=== PATIENT | female | born 1995 | race Asian ===

== ENCOUNTER 2018-01-08 16:09 | Emergency (ER) | payer MEDICAID, OTHER ==
[~2018-01-08] VITALS: Ht 167.6 cm; Wt 121.4 kg
[~2018-01-08 16:09] MED LIST: LITH300C3 PO
[2018-01-08] MEDS ORDERED: LAMO25 PO (16:17)
[2018-01-08] MEDS ORDERED: HydrOXYzine PAMOATE 25 MG CAPSULE PO ONE (19:00)
[2018-01-08 19:41] VITALS: BP 123/75
== END 2018-01-08 19:42 | disposition home or self-care (01) ==
LOC: EMS 16:09
DX: F41.9 Anxiety disorder, unspecified (principal); F31.9 Bipolar disorder, unspecified; F17.210 Nicotine dependence, cigarettes, uncomplicated; F12.90 Cannabis use, unspecified, uncomplicated
CPT/HCPCS: 99284

== ENCOUNTER 2018-05-02 16:07 | Inpatient (IN) | payer MEDICAID ==
[~2018-05-02] VITALS: Ht 167.6 cm; Wt 121.2 kg
[~2018-05-02 16:07] MED LIST changes: +ARIP15TA2 PO; +CITA10TA68 PO; +FOLI1 PO; -LITH300C3 PO
[2018-05-02 16:44] LABS: BASOPHILS % (AUTO) 0.6 % (0.0-2.0); EOSINOPHILS % (AUTO) 1.1 % (1.0-6.0); HEMATOCRIT 40.8 % (36-46); HEMOGLOBIN 13.2 g/dL (12.0-16.0); LYMPHOCYTES # (AUTO) 2.6 K/uL (1.0-4.8); MEAN CORPUSCULAR HEMOGLOBIN 27.2 pg (26.0-34.0); MEAN CORPUSCULAR HGB CONC 32.4 G/dL (31.0-37.0); MEAN CORPUSCULAR VOLUME 84 fL (80-100); MONOCYTES # (AUTO) 0.7 K/uL (0.1-1.0); NEUTROPHILS % (AUTO) 79.3 % (40.0-70.0); PLATELET COUNT (AUTO) 529 K/uL (150-450); RED BLOOD CELL COUNT(AUTO) 4.86 MIL/uL (4.00-5.20); RED CELL DISTRIBUTION WIDTH 13.9 % (11.5-14.5)
[2018-05-02 16:50] LABS: ANION GAP 10 mmol/L (8-16); CALCIUM, TOTAL 9.1 mg/dL (8.8-10.5); CARBON DIOXIDE 27 mmol/L (22-29); CHLORIDE 103 mmol/L (98-107); CREATININE 0.94 mg/dL (0.60-1.30); GLOMERULAR FILTR. RATE CALC > 60 mL/min (>60); GLUCOSE,RANDOM 83 mg/dL (70-110); POTASSIUM 3.7 mmol/L (3.5-5.1); SODIUM SERUM 140 mmol/L (136-145); UREA NITROGEN, BLOOD 11 mg/dL (7-18)
[2018-05-02 16:55] LABS: ALANINE AMINOTRANSFERASE 35 U/L (12-78); ALBUMIN 3.6 g/dL (3.4-5.0); ALKALINE PHOSPHATASE 125 U/L (46-116); ASPARTATE AMINOTRANSFERASE 17 U/L (15-37); BILIRUBIN,TOTAL 0.4 mg/dL (0.1-1.0); TOTAL PROTEIN, SERUM 8.4 g/dL (6.4-8.2)
[2018-05-02 18:20] LABS: AMPHET/METH SCREEN,URINE NEGATIVE (NEGATIVE); BARBITURATE SCREEN, URINE NEGATIVE (NEGATIVE); BENZODIAZEPINES SCREEN,URINE NEGATIVE (NEGATIVE); CANNABINOID SCREEN,URINE NEGATIVE (NEGATIVE); COCAINE SCREEN,URINE NEGATIVE (NEGATIVE); METHADONE SCREEN, URINE NEGATIVE (NEGATIVE); OPIATE SCREEN,URINE NEGATIVE (NEGATIVE); PHENCYCLIDINE SCREEN,URINE NEGATIVE (NEGATIVE)
[2018-05-02] MEDS: LORazepam 2 MG/ML VIAL IM ONE ×3 (19:17→19:52)
[2018-05-02] MEDS ORDERED: HALOPERIDOL 5 MG TABLET PO PRN (19:45)
[2018-05-02] MEDS ORDERED: LORazepam 2 MG TABLET PO PRN (19:45)
[2018-05-02] MEDS ORDERED: ACETAMINOPHEN 500 MG TABLET PO ONE (20:00)
[2018-05-02 22:03] VITALS: BP 119/84
[2018-05-02 22:03] LABS: APPEARANCE,URINE CLOUDY (CLEAR); BILIRUBIN,URINE NEGATIVE (NEGATIVE); GLUCOSE, URINE (UA) NEGATIVE (NEGATIVE); KETONES,URINE NEGATIVE (NEGATIVE); LEUKOCYTE ESTERASE ,URINE NEGATIVE (NEGATIVE); NITRATE,URINE NEGATIVE (NEGATIVE); OCCULT BLOOD,URINE NEGATIVE (NEGATIVE); PH,URINE 5.5 (5.0-8.0); PROTEIN,URINE NEGATIVE (NEGATIVE); UROBILINOGEN,URINE 0.2 mg/dL (<=1.0)
[2018-05-02] MEDS ORDERED: MAG HYDROX/AL HYDROX/SIMETH ES 30 ML SUSPENSION UDCUP PO PRN (22:15)
[2018-05-02] MEDS ORDERED: DOCUSATE SODIUM 100 MG CAPSULE PO PRN (22:15)
[2018-05-02] MEDS ORDERED: LOPERAMIDE HCL 2 MG CAPSULE PO PRN (22:15)
[2018-05-02] MEDS ORDERED: IBUPROFEN 400 MG TABLET PO PRN (22:15)
[2018-05-02] MEDS ORDERED: GuaiFENesin/D-METHORPHAN [SUGAR-FREE] 200-20MG/10 ML SYRUP UDCUP PO PRN (22:15)
[2018-05-02] MEDS ORDERED: CloNIDine HCL 0.1 MG TABLET PO PRN (22:15)
[2018-05-02] MEDS ORDERED: NICOTINE 14 MG/24 HOUR PATCH TD PRN (22:15)
[2018-05-02] MEDS ORDERED: ALBUTEROL SULFATE HFA 90 MCG/PUFF 8 GM INHALER IH PRN (22:15)
[2018-05-02] MEDS ORDERED: PNEUMOCOCCAL VACCINE POLYVALENT 0.5 ML VIAL [PPSV23] IM ONE (22:15)
[2018-05-02] MEDS ORDERED: ACETAMINOPHEN 325 MG TABLET PO PRN (22:15)
[2018-05-02] MEDS ORDERED: PETROLATUM,WHITE 71 GM JELLY TP PRN (22:15)
[2018-05-02] MEDS ORDERED: ONDANSETRON HCL 4 MG TABLET PO PRN (22:15)
[2018-05-02] MEDS ORDERED: MAGNESIUM HYDROXIDE SUSPENSION 30 ML UDCUP PO PRN (22:15)
[2018-05-03 06:54] LABS: BASOPHILS % (AUTO) 0.8 % (0.0-2.0); EOSINOPHILS % (AUTO) 3.6 % (1.0-6.0); HEMATOCRIT 39.9 % (36-46); HEMOGLOBIN 13.2 g/dL (12.0-16.0); LYMPHOCYTES # (AUTO) 2.1 K/uL (1.0-4.8); LYMPHOCYTES % (AUTO) 20.8 % (22.0-44.0); MEAN CORPUSCULAR HGB CONC 33.2 G/dL (31.0-37.0); MEAN CORPUSCULAR VOLUME 84 fL (80-100); MONOCYTES # (AUTO) 0.6 K/uL (0.1-1.0); MONOCYTES % (AUTO) 5.6 % (2.0-9.0); NEUTROPHILS # (AUTO) 7.1 K/uL (1.8-7.7); NEUTROPHILS % (AUTO) 69.2 % (40.0-70.0); PLATELET COUNT (AUTO) 493 K/uL (150-450); RED BLOOD CELL COUNT(AUTO) 4.73 MIL/uL (4.00-5.20); RED CELL DISTRIBUTION WIDTH 14.1 % (11.5-14.5)
[2018-05-03 07:01] LABS: HEMOGLOBIN A1C 5.5 % (4.5-6.2)
[2018-05-03 07:12] LABS: ALANINE AMINOTRANSFERASE 35 U/L (12-78); ALBUMIN 3.3 g/dL (3.4-5.0); ALKALINE PHOSPHATASE 111 U/L (46-116); ANION GAP 6 mmol/L (8-16); ASPARTATE AMINOTRANSFERASE 25 U/L (15-37); BILIRUBIN,TOTAL 0.4 mg/dL (0.1-1.0); CALCIUM, TOTAL 8.4 mg/dL (8.8-10.5); CARBON DIOXIDE 29 mmol/L (22-29); CHLORIDE 104 mmol/L (98-107); CHOL/HDL RATIO 3.9 (3.9-5.7); CHOLESTEROL 181 mg/dL (131-200); GLOMERULAR FILTR. RATE CALC > 60 mL/min (>60); GLUCOSE,RANDOM 96 mg/dL (70-110); HDL CHOLESTEROL 46 mg/dL (40-60); LDL CHOL (CALC.) 110 mg/dL (0-130); POTASSIUM 3.9 mmol/L (3.5-5.1); SODIUM SERUM 139 mmol/L (136-145); THYROID STIMULATING HORMONE 1.82 uIU/mL (0.36-3.74); TOTAL PROTEIN, SERUM 7.7 g/dL (6.4-8.2); TRIGLYCERIDES 123 mg/dL (15-150); UREA NITROGEN, BLOOD 11 mg/dL (7-18)
[2018-05-03] MEDS: ARIPiprazole 15 MG TABLET PO SCH (07:48)
[2018-05-03] MEDS ORDERED: CITALOPRAM HYDROBROMIDE 20 MG TABLET PO SCH (09:00)
[2018-05-03 16:24] VITALS: BP 120/64
[2018-05-03] MEDS: ZOLPIDEM TARTRATE 10 MG TABLET PO PRN (22:13)
[2018-05-04 08:18] VITALS: BP 111/68
[2018-05-04] MEDS ORDERED: ARIPiprazole 15 MG TABLET PO SCH (09:00)
[2018-05-04] MEDS: ARIPiprazole 15 MG TABLET PO SCH (09:08)
[2018-05-04] MEDS: CITALOPRAM HYDROBROMIDE 20 MG TABLET PO SCH (09:08)
[2018-05-04 19:12] VITALS: BP 115/78
[2018-05-04] MEDS: ZOLPIDEM TARTRATE 10 MG TABLET PO PRN (21:05)
[2018-05-05 08:00] VITALS: BP 114/76
[2018-05-05] MEDS: CITALOPRAM HYDROBROMIDE 20 MG TABLET PO SCH (08:26)
[2018-05-05] MEDS: ARIPiprazole 15 MG TABLET PO SCH (08:26)
[2018-05-05] MEDS ORDERED: CITA-106 PO (13:15)
== END 2018-05-05 15:00 | disposition home or self-care (01) | DRG 751 ==
LOC: EMS 16:07 → 3EC 20:00
PROVIDERS: ADMIT Psychiatry & Neurology Psychiatry; ATTEND Psychiatry & Neurology Psychiatry
DX: F33.3 Major depressive disorder, recurrent, severe with psychotic symptoms (principal); R45.851 Suicidal ideations; D72.829 Elevated white blood cell count, unspecified; F10.10 Alcohol abuse, uncomplicated; F12.90 Cannabis use, unspecified, uncomplicated; F17.210 Nicotine dependence, cigarettes, uncomplicated; F19.10 Other psychoactive substance abuse, uncomplicated; F41.9 Anxiety disorder, unspecified; F60.3 Borderline personality disorder; J45.909 Unspecified asthma, uncomplicated; Z79.899 Other long term (current) drug therapy; Z71.51 Drug abuse counseling and surveillance of drug abuser; Z71.6 Tobacco abuse counseling; Z28.21 Immunization not carried out because of patient refusal; Z71.41 Alcohol abuse counseling and surveillance of alcoholic
CPT/HCPCS: 83036; 84443; 96372; G0480; J2060

== ENCOUNTER 2018-06-18 18:20 | Emergency (ER) | payer MEDICAID ==
[~2018-06-18 18:20] MED LIST changes: +CITA-106 PO; -CITA10TA68 PO; -FOLI1 PO
== END 2018-06-18 19:09 | disposition left against medical advice (07) ==
LOC: EMS 18:21
DX: S41.119A Laceration without foreign body of unspecified upper arm, initial encounter (principal); W45.8XXA Other foreign body or object entering through skin, initial encounter; Y93.89 Activity, other specified; Y92.89 Other specified places as the place of occurrence of the external cause; Y99.8 Other external cause status; Z53.21 Procedure and treatment not carried out due to patient leaving prior to being seen by health care provider

== ENCOUNTER 2018-11-22 01:13 | Inpatient (IN) | payer MEDICAID ==
[~2018-11-22] VITALS: Ht 167.6 cm; Wt 118.7 kg
[2018-11-22 02:48] LABS: BASOPHILS % (AUTO) 0.9 % (0.0-2.0); EOSINOPHILS % (AUTO) 1.7 % (1.0-6.0); HEMATOCRIT 43.9 % (36-46); HEMOGLOBIN 14.3 g/dL (12.0-16.0); LYMPHOCYTES # (AUTO) 2.9 K/uL (1.0-4.8); MEAN CORPUSCULAR HEMOGLOBIN 28.4 pg (26.0-34.0); MEAN CORPUSCULAR HGB CONC 32.6 G/dL (31.0-37.0); MEAN CORPUSCULAR VOLUME 87 fL (80-100); MONOCYTES % (AUTO) 5.7 % (2.0-9.0); NEUTROPHILS # (AUTO) 12.7 K/uL (1.8-7.7); NEUTROPHILS % (AUTO) 74.7 % (40.0-70.0); PLATELET COUNT (AUTO) 454 K/uL (150-450); RED BLOOD CELL COUNT(AUTO) 5.05 MIL/uL (4.00-5.20); RED CELL DISTRIBUTION WIDTH 15.2 % (11.5-14.5)
[2018-11-22 02:57] LABS: ANION GAP 12 mmol/L (8-16); CARBON DIOXIDE 24 mmol/L (22-29); CHLORIDE 103 mmol/L (98-107); GLOMERULAR FILTR. RATE CALC > 60 mL/min (>60); GLUCOSE,RANDOM 102 mg/dL (70-110); SODIUM SERUM 139 mmol/L (136-145); UREA NITROGEN, BLOOD 13 mg/dL (7-18)
[2018-11-22] MEDS ORDERED: LORazepam 2 MG/ML VIAL ONE (02:57)
[2018-11-22] MEDS ORDERED: HALOPERIDOL LACTATE 5 MG/ML VIAL ONE (02:57)
[2018-11-22] MEDS ORDERED: DiphenhydrAMINE HCL 50 MG/ML VIAL ONE (02:57)
[2018-11-22] MEDS ORDERED: HALOPERIDOL LACTATE 5 MG/ML VIAL IM ONE (03:00)
[2018-11-22] MEDS ORDERED: DiphenhydrAMINE HCL 50 MG/ML VIAL IM ONE (03:00)
[2018-11-22] MEDS ORDERED: LORazepam 2 MG/ML VIAL IM ONE (03:00)
[2018-11-22 03:10] LABS: ALANINE AMINOTRANSFERASE 34 U/L (12-78); ALBUMIN 3.6 g/dL (3.4-5.0); ALKALINE PHOSPHATASE 105 U/L (46-116); ASPARTATE AMINOTRANSFERASE 20 U/L (15-37); BILIRUBIN,TOTAL 0.3 mg/dL (0.1-1.0); HCG,QUANTITATIVE < 1 mIU/mL (0-6); TOTAL PROTEIN, SERUM 8.5 g/dL (6.4-8.2)
[2018-11-22] MEDS ORDERED: ZOLPIDEM TARTRATE 10 MG TABLET PO PRN (15:45)
[2018-11-22] MEDS ORDERED: HALOPERIDOL 5 MG TABLET PO PRN (15:45)
[2018-11-22] MEDS: LORazepam 2 MG TABLET PO PRN (17:35)
[2018-11-22 17:41] VITALS: BP 119/73
[2018-11-22] MEDS ORDERED: MAG HYDROX/AL HYDROX/SIMETH ES 30 ML SUSPENSION UDCUP PO PRN (18:30)
[2018-11-22] MEDS ORDERED: BENZOCAINE/MENTHOL LOZENGE MM PRN (18:30)
[2018-11-22] MEDS ORDERED: ONDANSETRON HCL 4 MG TABLET PO PRN (18:30)
[2018-11-22] MEDS ORDERED: LOPERAMIDE HCL 2 MG CAPSULE PO PRN (18:30)
[2018-11-22] MEDS ORDERED: CloNIDine HCL 0.1 MG TABLET PO PRN (18:30)
[2018-11-22] MEDS ORDERED: MAGNESIUM HYDROXIDE SUSPENSION 30 ML UDCUP PO PRN (18:30)
[2018-11-22] MEDS ORDERED: ACETAMINOPHEN 325 MG TABLET PO PRN (18:30)
[2018-11-22] MEDS ORDERED: PETROLATUM,WHITE 28 GM JELLY TP PRN (18:30)
[2018-11-22] MEDS ORDERED: ALBUTEROL SULFATE HFA 90 MCG/PUFF 8 GM INHALER IH PRN (18:30)
[2018-11-22] MEDS ORDERED: IBUPROFEN 600 MG TABLET PO PRN (18:30)
[2018-11-22] MEDS ORDERED: BACITRACIN 28.4 GM OINTMENT TP PRN (18:30)
[2018-11-22] MEDS ORDERED: PNEUMOCOCCAL VACCINE POLYVALENT 0.5 ML VIAL [PPSV23] IM ONE (19:00)
[2018-11-23 00:43] VITALS: BP 116/65
[2018-11-23 07:48] LABS: BASOPHILS % (AUTO) 1.2 % (0.0-2.0); EOSINOPHILS % (AUTO) 2.9 % (1.0-6.0); HEMOGLOBIN 14.1 g/dL (12.0-16.0); LYMPHOCYTES # (AUTO) 2.1 K/uL (1.0-4.8); LYMPHOCYTES % (AUTO) 15.3 % (22.0-44.0); MEAN CORPUSCULAR HEMOGLOBIN 28.6 pg (26.0-34.0); MEAN CORPUSCULAR HGB CONC 32.7 G/dL (31.0-37.0); MEAN CORPUSCULAR VOLUME 87 fL (80-100); MONOCYTES # (AUTO) 0.8 K/uL (0.1-1.0); MONOCYTES % (AUTO) 5.6 % (2.0-9.0); NEUTROPHILS # (AUTO) 10.4 K/uL (1.8-7.7); PLATELET COUNT (AUTO) 435 K/uL (150-450); RED BLOOD CELL COUNT(AUTO) 4.92 MIL/uL (4.00-5.20); RED CELL DISTRIBUTION WIDTH 15.2 % (11.5-14.5)
[2018-11-23 08:40] VITALS: BP 129/86
[2018-11-23] MEDS: NICOTINE 14 MG/24 HOUR PATCH TD SCH (08:46)
[2018-11-23] MEDS: ARIPiprazole 15 MG TABLET PO SCH (08:50)
[2018-11-23] MEDS: CITALOPRAM HYDROBROMIDE 20 MG TABLET PO SCH (08:51)
[2018-11-23 16:00] VITALS: BP 124/88
[2018-11-24 00:04] VITALS: BP 129/79
[2018-11-24 08:34] VITALS: BP 123/77
[2018-11-24] MEDS: ARIPiprazole 15 MG TABLET PO SCH (08:50)
[2018-11-24] MEDS: NICOTINE 14 MG/24 HOUR PATCH TD SCH (08:50)
[2018-11-24] MEDS: CITALOPRAM HYDROBROMIDE 20 MG TABLET PO SCH (08:50)
[2018-11-24 16:17] VITALS: BP 118/72
[2018-11-24] MEDS: LORazepam 2 MG TABLET PO PRN (18:42)
[2018-11-25 03:30] VITALS: BP 118/79
[2018-11-25 08:27] VITALS: BP 117/79
[2018-11-25] MEDS: NICOTINE 14 MG/24 HOUR PATCH TD SCH (08:38)
[2018-11-25] MEDS: CITALOPRAM HYDROBROMIDE 20 MG TABLET PO SCH (08:39)
[2018-11-25] MEDS: ARIPiprazole 15 MG TABLET PO SCH (08:39)
== END 2018-11-25 12:40 | disposition home or self-care (01) | DRG 750 ==
LOC: EMS 01:16 → B3A 17:16
PROVIDERS: ADMIT Psychiatry & Neurology Psychiatry; ATTEND Psychiatry & Neurology Psychiatry
DX: F25.9 Schizoaffective disorder, unspecified (principal); R45.851 Suicidal ideations; Z68.41 Body mass index [BMI] 40.0-44.9, adult; F12.90 Cannabis use, unspecified, uncomplicated; F17.210 Nicotine dependence, cigarettes, uncomplicated; F41.9 Anxiety disorder, unspecified; F60.3 Borderline personality disorder; F31.9 Bipolar disorder, unspecified; J45.909 Unspecified asthma, uncomplicated; E66.9 Obesity, unspecified; Z56.0 Unemployment, unspecified; Z71.6 Tobacco abuse counseling; Z71.51 Drug abuse counseling and surveillance of drug abuser
CPT/HCPCS: 90732; G0480; J1200; J1630; J2060

== ENCOUNTER 2019-07-04 06:44 | Inpatient (IN) | payer MEDICAID ==
[~2019-07-04] VITALS: Ht 167.6 cm; Wt 121.3 kg
[2019-07-04] MEDS ORDERED: HALOPERIDOL LACTATE 5 MG/ML VIAL ONE (07:23)
[2019-07-04] MEDS ORDERED: DiphenhydrAMINE HCL 50 MG/ML VIAL ONE (07:23)
[2019-07-04] MEDS ORDERED: LORazepam 2 MG/ML VIAL ONE (07:23)
[2019-07-04] MEDS ORDERED: LORazepam 2 MG/ML VIAL IM ONE (07:45)
[2019-07-04] MEDS ORDERED: HALOPERIDOL LACTATE 5 MG/ML VIAL IM ONE (07:45)
[2019-07-04] MEDS ORDERED: DiphenhydrAMINE HCL 50 MG/ML VIAL IM ONE (07:45)
[2019-07-04] MEDS ORDERED: HYD50 PO (07:46)
[2019-07-04] MEDS ORDERED: RISP2 PO (07:46)
[2019-07-04 10:21] LABS: BASOPHILS % (AUTO) 0.7 % (0.0-2.0); EOSINOPHILS % (AUTO) 0.3 % (1.0-6.0); HEMATOCRIT 46.8 % (36-46); HEMOGLOBIN 15.8 g/dL (12.0-16.0); LYMPHOCYTES # (AUTO) 1.9 K/uL (1.0-4.8); LYMPHOCYTES % (AUTO) 20.3 % (22.0-44.0); MEAN CORPUSCULAR HEMOGLOBIN 29.8 pg (26.0-34.0); MEAN CORPUSCULAR HGB CONC 33.7 G/dL (31.0-37.0); MEAN CORPUSCULAR VOLUME 89 fL (80-100); MONOCYTES # (AUTO) 0.9 K/uL (0.1-1.0); MONOCYTES % (AUTO) 9.1 % (2.0-9.0); NEUTROPHILS # (AUTO) 6.6 K/uL (1.8-7.7); NEUTROPHILS % (AUTO) 69.6 % (40.0-70.0); PLATELET COUNT (AUTO) 364 K/uL (150-450); RED BLOOD CELL COUNT(AUTO) 5.29 MIL/uL (4.00-5.20); RED CELL DISTRIBUTION WIDTH 13.9 % (11.5-14.5)
[2019-07-04 10:47] LABS: ANION GAP 11 mmol/L (8-16); CALCIUM, TOTAL 8.9 mg/dL (8.8-10.5); CARBON DIOXIDE 26 mmol/L (22-29); CHLORIDE 106 mmol/L (98-107); CREATININE 0.94 mg/dL (0.60-1.30); GLOMERULAR FILTR. RATE CALC > 60 mL/min (>60); GLUCOSE,RANDOM 87 mg/dL (70-110); POTASSIUM 3.8 mmol/L (3.5-5.1); SODIUM SERUM 143 mmol/L (136-145); UREA NITROGEN, BLOOD 12 mg/dL (7-18)
[2019-07-04 10:51] LABS: ALANINE AMINOTRANSFERASE 43 U/L (12-78); ALBUMIN 3.6 g/dL (3.4-5.0); ALKALINE PHOSPHATASE 105 U/L (46-116); ASPARTATE AMINOTRANSFERASE 32 U/L (15-37); BILIRUBIN,TOTAL 0.3 mg/dL (0.1-1.0); TOTAL PROTEIN, SERUM 8.1 g/dL (6.4-8.2)
[2019-07-04] MEDS ORDERED: HALOPERIDOL 5 MG TABLET PO PRN (11:00)
[2019-07-04] MEDS ORDERED: ZOLPIDEM TARTRATE 10 MG TABLET PO PRN (11:00)
[2019-07-04] MEDS ORDERED: INFLUENZA VIRUS VACCINE QVS 2019-20 (3YR+)/PF 60 MCG/0.5 ML SYRINGE IM ONE (14:45)
[2019-07-04] MEDS: LORazepam 2 MG TABLET PO PRN (19:08)
[2019-07-04 23:17] VITALS: BP 123/78
[2019-07-05 04:50] VITALS: BP 145/98
[2019-07-05] MEDS: LORazepam 2 MG TABLET PO PRN (08:28)
[2019-07-05 08:34] LABS: APPEARANCE,URINE TURBID (CLEAR); BILIRUBIN,URINE NEGATIVE (NEGATIVE); GLUCOSE, URINE (UA) NEGATIVE (NEGATIVE); KETONES,URINE TRACE mg/dL (NEGATIVE); LEUKOCYTE ESTERASE ,URINE NEGATIVE (NEGATIVE); NITRATE,URINE NEGATIVE (NEGATIVE); OCCULT BLOOD,URINE NEGATIVE (NEGATIVE); PROTEIN,URINE NEGATIVE (NEGATIVE); UROBILINOGEN,URINE 0.2 mg/dL (<=1.0)
[2019-07-05 08:39] LABS: AMPHET/METH SCREEN,URINE NEGATIVE (NEGATIVE); BARBITURATE SCREEN, URINE NEGATIVE (NEGATIVE); BENZODIAZEPINES SCREEN,URINE NEGATIVE (NEGATIVE); CANNABINOID SCREEN,URINE POSITIVE (NEGATIVE); COCAINE SCREEN,URINE NEGATIVE (NEGATIVE); METHADONE SCREEN, URINE NEGATIVE (NEGATIVE); OPIATE SCREEN,URINE NEGATIVE (NEGATIVE)
[2019-07-05 08:45] LABS: PHENCYCLIDINE SCREEN,URINE NEGATIVE (NEGATIVE)
[2019-07-05 16:47] VITALS: BP 131/81
[2019-07-05] MEDS: LURASIDONE HCL 80 MG TABLET PO SCH (21:00)
[2019-07-05] MEDS ORDERED: IBUPROFEN 600 MG TABLET PO PRN (22:45)
[2019-07-05] MEDS ORDERED: BACITRACIN 28.4 GM OINTMENT TP PRN (22:45)
[2019-07-05] MEDS ORDERED: ALBUTEROL SULFATE HFA 90 MCG/PUFF 8 GM INHALER IH PRN (22:45)
[2019-07-05] MEDS ORDERED: OMEPRAZOLE 20 MG CAPSULE PO PRN (22:45)
[2019-07-05] MEDS ORDERED: DOCUSATE SODIUM 100 MG CAPSULE PO PRN (22:45)
[2019-07-05] MEDS ORDERED: CloNIDine HCL 0.1 MG TABLET PO PRN (22:45)
[2019-07-05] MEDS ORDERED: BENZOCAINE/MENTHOL LOZENGE MM PRN (22:45)
[2019-07-05] MEDS ORDERED: MAGNESIUM HYDROXIDE SUSPENSION 30 ML UDCUP PO PRN (22:45)
[2019-07-05] MEDS ORDERED: LOPERAMIDE HCL 2 MG CAPSULE PO PRN (22:45)
[2019-07-05] MEDS ORDERED: MAG HYDROX/AL HYDROX/SIMETH ES 30 ML SUSPENSION UDCUP PO PRN (22:45)
[2019-07-05] MEDS ORDERED: ONDANSETRON HCL 4 MG TABLET PO PRN (22:45)
[2019-07-05] MEDS ORDERED: PETROLATUM,WHITE 28 GM JELLY TP PRN (22:45)
[2019-07-05] MEDS ORDERED: ACETAMINOPHEN 325 MG TABLET PO PRN (22:45)
[2019-07-06 05:43] VITALS: BP 125/76
[2019-07-06 08:13] VITALS: BP 159/89
[2019-07-06] MEDS: LamoTRIgine 100 MG TABLET PO SCH ×2 (08:38→16:35)
[2019-07-06] MEDS: DIVALPROEX SODIUM 500 MG DR TABLET PO SCH ×2 (08:38→16:35)
[2019-07-06] MEDS: LORazepam 2 MG TABLET PO PRN (08:38)
[2019-07-06] MEDS: RisperiDONE 3 MG TABLET PO SCH ×2 (08:44→16:34)
[2019-07-06] MEDS ORDERED: GuaiFENesin/D-METHORPHAN [SUGAR-FREE] 200-20MG/10 ML SYRUP UDCUP PO PRN (09:15)
[2019-07-06] MEDS ORDERED: NICOTINE 14 MG/24 HOUR PATCH TD PRN (09:15)
[2019-07-06 09:59] VITALS: BP 114/61
[2019-07-06 16:23] VITALS: BP 133/83
[2019-07-06] MEDS: LURASIDONE HCL 80 MG TABLET PO SCH (20:45)
[2019-07-07 05:16] VITALS: BP 127/80
[2019-07-07 08:20] LABS: THYROID STIMULATING HORMONE 1.28 uIU/mL (0.36-3.74)
[2019-07-07 08:22] VITALS: BP 141/83
[2019-07-07 08:36] LABS: FREE T4 (FREE THYROXINE) 1.2 ng/dL (0.76-1.46)
[2019-07-07] MEDS: DIVALPROEX SODIUM 500 MG DR TABLET PO SCH (08:38)
[2019-07-07] MEDS: LamoTRIgine 100 MG TABLET PO SCH (08:38)
[2019-07-07] MEDS: RisperiDONE 3 MG TABLET PO SCH (08:42)
[2019-07-07] MEDS ORDERED: RISP3 PO (13:34)
[2019-07-07] MEDS ORDERED: LAMO100 PO (13:35)
[2019-07-07] MEDS ORDERED: DIVA-78 PO (13:35)
[2019-07-07] MEDS ORDERED: LURA80 PO (13:36)
== END 2019-07-07 14:00 | disposition home or self-care (01) | DRG 753 ==
LOC: EMS 06:44 → B3A 11:10
PROVIDERS: ADMIT Psychiatry & Neurology Psychiatry; ATTEND Psychiatry & Neurology Psychiatry
DX: F31.9 Bipolar disorder, unspecified (principal); R45.851 Suicidal ideations; F41.9 Anxiety disorder, unspecified; F60.3 Borderline personality disorder; G47.00 Insomnia, unspecified; K59.00 Constipation, unspecified; Z87.891 Personal history of nicotine dependence
CPT/HCPCS: 84439; 84443; 96372; G0480; J1200; J1630; J2060

== ENCOUNTER 2019-07-17 17:38 | Inpatient (IN) | payer MEDICAID ==
[~2019-07-17] VITALS: Ht 167.6 cm; Wt 122.5 kg
[~2019-07-17 17:38] MED LIST changes: -ARIP15TA2 PO; -CITA-106 PO; +DIVA-78 PO; +LAMO100 PO; +LURA80 PO; +RISP3 PO
[2019-07-17] MEDS ORDERED: IBUPROFEN 600 MG TABLET PO ONE (19:30)
[2019-07-17 19:45] LABS: AMPHET/METH SCREEN,URINE NEGATIVE (NEGATIVE); BARBITURATE SCREEN, URINE NEGATIVE (NEGATIVE); BENZODIAZEPINES SCREEN,URINE NEGATIVE (NEGATIVE); CANNABINOID SCREEN,URINE POSITIVE (NEGATIVE); COCAINE SCREEN,URINE NEGATIVE (NEGATIVE); METHADONE SCREEN, URINE NEGATIVE (NEGATIVE); OPIATE SCREEN,URINE NEGATIVE (NEGATIVE)
[2019-07-17 19:48] LABS: BASOPHILS % (AUTO) 0.7 % (0.0-2.0); EOSINOPHILS % (AUTO) 1.3 % (1.0-6.0); HEMATOCRIT 42.4 % (36-46); HEMOGLOBIN 14.1 g/dL (12.0-16.0); LYMPHOCYTES # (AUTO) 2.2 K/uL (1.0-4.8); LYMPHOCYTES % (AUTO) 12.8 % (22.0-44.0); MEAN CORPUSCULAR HEMOGLOBIN 29.4 pg (26.0-34.0); MEAN CORPUSCULAR HGB CONC 33.2 G/dL (31.0-37.0); MEAN CORPUSCULAR VOLUME 89 fL (80-100); MONOCYTES # (AUTO) 1.3 K/uL (0.1-1.0); MONOCYTES % (AUTO) 7.4 % (2.0-9.0); NEUTROPHILS # (AUTO) 13.2 K/uL (1.8-7.7); NEUTROPHILS % (AUTO) 77.8 % (40.0-70.0); PLATELET COUNT (AUTO) 407 K/uL (150-450); RED BLOOD CELL COUNT(AUTO) 4.79 MIL/uL (4.00-5.20); RED CELL DISTRIBUTION WIDTH 13.8 % (11.5-14.5)
[2019-07-17 20:00] LABS: PHENCYCLIDINE SCREEN,URINE NEGATIVE (NEGATIVE)
[2019-07-17 20:15] LABS: ANION GAP 10 mmol/L (8-16); CALCIUM, TOTAL 9.6 mg/dL (8.8-10.5); CARBON DIOXIDE 26 mmol/L (22-29); CHLORIDE 103 mmol/L (98-107); CREATININE 0.95 mg/dL (0.60-1.30); GLOMERULAR FILTR. RATE CALC > 60 mL/min (>60); GLUCOSE,RANDOM 103 mg/dL (70-110); POTASSIUM 3.8 mmol/L (3.5-5.1); SODIUM SERUM 139 mmol/L (136-145); UREA NITROGEN, BLOOD 9 mg/dL (7-18)
[2019-07-17] MEDS ORDERED: LORazepam 2 MG TABLET PO ONE (20:15)
[2019-07-17] MEDS ORDERED: HALOPERIDOL 5 MG TABLET PO ONE (20:15)
[2019-07-17 20:19] LABS: ALANINE AMINOTRANSFERASE 54 U/L (12-78); ALBUMIN 3.5 g/dL (3.4-5.0); ALKALINE PHOSPHATASE 105 U/L (46-116); ASPARTATE AMINOTRANSFERASE 32 U/L (15-37); BILIRUBIN,TOTAL 0.4 mg/dL (0.1-1.0); TOTAL PROTEIN, SERUM 7.9 g/dL (6.4-8.2)
[2019-07-17 20:39] LABS: VALPROIC ACID < 3 mcg/mL (50-100)
[2019-07-17 21:21] LABS: HCG,QUANTITATIVE < 1 mIU/mL (0-6)
[2019-07-17] MEDS ORDERED: ZOLPIDEM TARTRATE 10 MG TABLET PO PRN (22:00)
[2019-07-17] MEDS ORDERED: HALOPERIDOL 5 MG TABLET PO PRN (22:00)
[2019-07-18 00:47] VITALS: BP 144/80
[2019-07-18 00:53] VITALS: BP 144/80
[2019-07-18] MEDS ORDERED: INFLUENZA VIRUS VACCINE QVS 2019-20 (3YR+)/PF 60 MCG/0.5 ML SYRINGE IM ONE (01:45)
[2019-07-18] MEDS ORDERED: ONDANSETRON HCL 4 MG TABLET PO PRN (06:00)
[2019-07-18] MEDS ORDERED: OMEPRAZOLE 20 MG CAPSULE PO PRN (06:00)
[2019-07-18] MEDS ORDERED: ACETAMINOPHEN 325 MG TABLET PO PRN (06:00)
[2019-07-18] MEDS ORDERED: ALBUTEROL SULFATE HFA 90 MCG/PUFF 8 GM INHALER IH PRN (06:00)
[2019-07-18] MEDS ORDERED: IBUPROFEN 600 MG TABLET PO PRN (06:00)
[2019-07-18] MEDS ORDERED: DOCUSATE SODIUM 100 MG CAPSULE PO PRN (06:00)
[2019-07-18] MEDS ORDERED: CloNIDine HCL 0.1 MG TABLET PO PRN (06:00)
[2019-07-18] MEDS ORDERED: MAGNESIUM HYDROXIDE SUSPENSION 30 ML UDCUP PO PRN (06:00)
[2019-07-18] MEDS ORDERED: BENZOCAINE/MENTHOL LOZENGE MM PRN (06:00)
[2019-07-18] MEDS ORDERED: BACITRACIN 28.4 GM OINTMENT TP PRN (06:00)
[2019-07-18] MEDS ORDERED: PETROLATUM,WHITE 28 GM JELLY TP PRN (06:00)
[2019-07-18] MEDS ORDERED: LOPERAMIDE HCL 2 MG CAPSULE PO PRN (06:00)
[2019-07-18] MEDS ORDERED: MAG HYDROX/AL HYDROX/SIMETH ES 30 ML SUSPENSION UDCUP PO PRN (06:00)
[2019-07-18 08:40] VITALS: BP 128/77
[2019-07-18] MEDS: LORazepam 2 MG TABLET PO PRN (10:57)
[2019-07-18 16:00] VITALS: BP 121/78
[2019-07-18 16:26] VITALS: BP 121/78
[2019-07-19 05:28] VITALS: BP 120/70
[2019-07-19 08:14] VITALS: BP 149/84
[2019-07-19] MEDS: LamoTRIgine 100 MG TABLET PO SCH ×2 (08:54→16:44)
[2019-07-19] MEDS: RisperiDONE 3 MG TABLET PO SCH ×2 (08:54→16:44)
[2019-07-19] MEDS: DIVALPROEX SODIUM 500 MG DR TABLET PO SCH ×2 (08:56→16:44)
[2019-07-19] MEDS: LORazepam 2 MG TABLET PO PRN (08:59)
[2019-07-19 13:12] VITALS: BP 136/80
[2019-07-19] MEDS ORDERED: LURASIDONE HCL 80 MG TABLET PO SCH (21:00)
[2019-07-20 05:25] VITALS: BP 126/70
[2019-07-20] MEDS: LORazepam 2 MG TABLET PO PRN (08:15)
[2019-07-20] MEDS: RisperiDONE 3 MG TABLET PO SCH (08:15)
[2019-07-20] MEDS: LamoTRIgine 100 MG TABLET PO SCH (08:15)
[2019-07-20] MEDS: DIVALPROEX SODIUM 500 MG DR TABLET PO SCH (08:15)
[2019-07-20 08:27] VITALS: BP 140/84
[2019-07-20 08:49] LABS: BASOPHILS % (AUTO) 0.9 % (0.0-2.0); EOSINOPHILS % (AUTO) 2.2 % (1.0-6.0); HEMOGLOBIN 14.5 g/dL (12.0-16.0); LYMPHOCYTES # (AUTO) 2.9 K/uL (1.0-4.8); LYMPHOCYTES % (AUTO) 17.2 % (22.0-44.0); MEAN CORPUSCULAR HGB CONC 33.8 G/dL (31.0-37.0); MEAN CORPUSCULAR VOLUME 89 fL (80-100); MONOCYTES # (AUTO) 0.8 K/uL (0.1-1.0); MONOCYTES % (AUTO) 4.8 % (2.0-9.0); NEUTROPHILS # (AUTO) 12.7 K/uL (1.8-7.7); NEUTROPHILS % (AUTO) 74.9 % (40.0-70.0); PLATELET COUNT (AUTO) 427 K/uL (150-450); RED BLOOD CELL COUNT(AUTO) 4.83 MIL/uL (4.00-5.20); RED CELL DISTRIBUTION WIDTH 13.9 % (11.5-14.5)
[2019-07-20 09:09] LABS: ALANINE AMINOTRANSFERASE 47 U/L (12-78); ALBUMIN 3.2 g/dL (3.4-5.0); ALKALINE PHOSPHATASE 100 U/L (46-116); ANION GAP 10 mmol/L (8-16); ASPARTATE AMINOTRANSFERASE 21 U/L (15-37); BILIRUBIN,TOTAL 0.3 mg/dL (0.1-1.0); CARBON DIOXIDE 25 mmol/L (22-29); CHLORIDE 101 mmol/L (98-107); CHOL/HDL RATIO 5.8 (3.9-5.7); CHOLESTEROL 196 mg/dL (131-200); CREATININE 0.94 mg/dL (0.60-1.30); GLOMERULAR FILTR. RATE CALC > 60 mL/min (>60); GLUCOSE,RANDOM 116 mg/dL (70-110); HDL CHOLESTEROL 34 mg/dL (40-60); LDL CHOL (CALC.) 110 mg/dL (0-130); PHOSPHORUS 3.3 mg/dL (2.5-4.9); POTASSIUM 4.1 mmol/L (3.5-5.1); SODIUM SERUM 136 mmol/L (136-145); TOTAL PROTEIN, SERUM 7.8 g/dL (6.4-8.2); TRIGLYCERIDES 260 mg/dL (15-150); UREA NITROGEN, BLOOD 11 mg/dL (7-18)
== END 2019-07-20 13:58 | disposition home or self-care (01) | DRG 750 ==
LOC: EMS 17:38 → B3A 23:00
PROVIDERS: ADMIT Psychiatry & Neurology Psychiatry; ATTEND Psychiatry & Neurology Psychiatry
DX: F25.9 Schizoaffective disorder, unspecified (principal); R45.851 Suicidal ideations; F31.9 Bipolar disorder, unspecified; F60.3 Borderline personality disorder; Z87.891 Personal history of nicotine dependence
CPT/HCPCS: 83735; 84100; 87081; G0480

== ENCOUNTER 2019-07-22 07:21 | Emergency (ER) | payer MEDICAID ==
[~2019-07-22] VITALS: Ht 167.6 cm; Wt 122.7 kg
[2019-07-22 08:30] LABS: BASOPHILS % (AUTO) 0.6 % (0.0-2.0); EOSINOPHILS % (AUTO) 1.2 % (1.0-6.0); HEMATOCRIT 44.7 % (36-46); HEMOGLOBIN 15.1 g/dL (12.0-16.0); LYMPHOCYTES # (AUTO) 2.2 K/uL (1.0-4.8); LYMPHOCYTES % (AUTO) 14.1 % (22.0-44.0); MEAN CORPUSCULAR HGB CONC 33.7 G/dL (31.0-37.0); MEAN CORPUSCULAR VOLUME 89 fL (80-100); MONOCYTES # (AUTO) 1.2 K/uL (0.1-1.0); MONOCYTES % (AUTO) 7.6 % (2.0-9.0); NEUTROPHILS # (AUTO) 11.8 K/uL (1.8-7.7); NEUTROPHILS % (AUTO) 76.5 % (40.0-70.0); PLATELET COUNT (AUTO) 431 K/uL (150-450); RED BLOOD CELL COUNT(AUTO) 5.03 MIL/uL (4.00-5.20); RED CELL DISTRIBUTION WIDTH 13.8 % (11.5-14.5)
[2019-07-22 08:40] LABS: ANION GAP 8 mmol/L (8-16); CALCIUM, TOTAL 10.3 mg/dL (8.8-10.5); CARBON DIOXIDE 28 mmol/L (22-29); CHLORIDE 103 mmol/L (98-107); CREATININE 0.78 mg/dL (0.60-1.30); GLOMERULAR FILTR. RATE CALC > 60 mL/min (>60); GLUCOSE,RANDOM 97 mg/dL (70-110); POTASSIUM 3.8 mmol/L (3.5-5.1); SODIUM SERUM 139 mmol/L (136-145); UREA NITROGEN, BLOOD 10 mg/dL (7-18)
[2019-07-22 08:46] LABS: ALANINE AMINOTRANSFERASE 48 U/L (12-78); ALBUMIN 3.6 g/dL (3.4-5.0); ALKALINE PHOSPHATASE 104 U/L (46-116); ASPARTATE AMINOTRANSFERASE 28 U/L (15-37); BILIRUBIN,TOTAL 0.4 mg/dL (0.1-1.0); TOTAL PROTEIN, SERUM 8.3 g/dL (6.4-8.2)
[2019-07-22 10:05] VITALS: BP 134/79
[2019-07-22 10:06] LABS: AMPHET/METH SCREEN,URINE NEGATIVE (NEGATIVE); BARBITURATE SCREEN, URINE NEGATIVE (NEGATIVE); BENZODIAZEPINES SCREEN,URINE NEGATIVE (NEGATIVE); CANNABINOID SCREEN,URINE POSITIVE (NEGATIVE); COCAINE SCREEN,URINE NEGATIVE (NEGATIVE); METHADONE SCREEN, URINE NEGATIVE (NEGATIVE); OPIATE SCREEN,URINE NEGATIVE (NEGATIVE); PHENCYCLIDINE SCREEN,URINE NEGATIVE (NEGATIVE)
== END 2019-07-22 10:30 | disposition home or self-care (01) ==
LOC: EMS 07:24
DX: F32.9 Major depressive disorder, single episode, unspecified (principal); F41.9 Anxiety disorder, unspecified; F17.210 Nicotine dependence, cigarettes, uncomplicated; F12.90 Cannabis use, unspecified, uncomplicated; Z79.899 Other long term (current) drug therapy
CPT/HCPCS: 36415; 80053; 80307; 85025; 99285; G0480

== ENCOUNTER 2019-07-22 13:36 | Emergency (ER) | payer MEDICAID ==
[~2019-07-22] VITALS: Ht 167.6 cm; Wt 122.7 kg
[2019-07-22 13:37] VITALS: BP 121/86
== END 2019-07-22 14:53 | disposition left against medical advice (07) ==
LOC: EMS 13:37
DX: R07.0 Pain in throat (principal); Z53.21 Procedure and treatment not carried out due to patient leaving prior to being seen by health care provider

== ENCOUNTER 2019-07-31 00:03 | Emergency (ER) | payer MEDICAID ==
[~2019-07-31] VITALS: Ht 167.6 cm; Wt 118.2 kg
[2019-07-31 02:40] LABS: ANION GAP 7 mmol/L (8-16); CALCIUM, TOTAL 9.2 mg/dL (8.8-10.5); CARBON DIOXIDE 29 mmol/L (22-29); CHLORIDE 103 mmol/L (98-107); CREATININE 0.73 mg/dL (0.60-1.30); GLOMERULAR FILTR. RATE CALC > 60 mL/min (>60); GLUCOSE,RANDOM 102 mg/dL (70-110); POTASSIUM 4.4 mmol/L (3.5-5.1); SODIUM SERUM 139 mmol/L (136-145); UREA NITROGEN, BLOOD 12 mg/dL (7-18)
[2019-07-31 02:50] LABS: ALANINE AMINOTRANSFERASE 33 U/L (12-78); ALBUMIN 3.3 g/dL (3.4-5.0); ALKALINE PHOSPHATASE 87 U/L (46-116); ASPARTATE AMINOTRANSFERASE 18 U/L (15-37); BASOPHILS % (AUTO) 0.7 % (0.0-2.0); BILIRUBIN,TOTAL 0.2 mg/dL (0.1-1.0); EOSINOPHILS % (AUTO) 2.3 % (1.0-6.0); HEMATOCRIT 43.6 % (36-46); HEMOGLOBIN 14.6 g/dL (12.0-16.0); LYMPHOCYTES # (AUTO) 2.1 K/uL (1.0-4.8); LYMPHOCYTES % (AUTO) 12.8 % (22.0-44.0); MEAN CORPUSCULAR HGB CONC 33.4 G/dL (31.0-37.0); MEAN CORPUSCULAR VOLUME 90 fL (80-100); MONOCYTES # (AUTO) 1.1 K/uL (0.1-1.0); MONOCYTES % (AUTO) 6.7 % (2.0-9.0); NEUTROPHILS # (AUTO) 12.5 K/uL (1.8-7.7); NEUTROPHILS % (AUTO) 77.5 % (40.0-70.0); PLATELET COUNT (AUTO) 408 K/uL (150-450); RED BLOOD CELL COUNT(AUTO) 4.86 MIL/uL (4.00-5.20); RED CELL DISTRIBUTION WIDTH 13.9 % (11.5-14.5); TOTAL PROTEIN, SERUM 7.8 g/dL (6.4-8.2)
[2019-07-31 07:32] VITALS: BP 114/72
== END 2019-07-31 08:25 | disposition home or self-care (01) ==
LOC: EMS 00:03
DX: F25.9 Schizoaffective disorder, unspecified (principal); F41.9 Anxiety disorder, unspecified; F31.9 Bipolar disorder, unspecified; F17.210 Nicotine dependence, cigarettes, uncomplicated; F12.90 Cannabis use, unspecified, uncomplicated; Z79.899 Other long term (current) drug therapy
CPT/HCPCS: 36415; 80053; 85025; 99285; G0480

== ENCOUNTER 2019-10-28 18:02 | Emergency (ER) | payer MEDICAID ==
[~2019-10-28] VITALS: Ht 167.6 cm; Wt 120.5 kg
[~2019-10-28 18:02] MED LIST changes: -LURA80 PO; +LURA80TA2 PO
[2019-10-28] MEDS ORDERED: HYDR-2924 PO (20:58)
[2019-10-28] MEDS ORDERED: TRAZ-257 PO (20:58)
[2019-10-28] MEDS ORDERED: LITH300C3 PO (20:58)
[2019-10-28 21:22] LABS: BASOPHILS % (AUTO) 0.5 % (0.0-2.0); EOSINOPHILS % (AUTO) 2.8 % (1.0-6.0); HEMATOCRIT 43.5 % (36-46); HEMOGLOBIN 14.5 g/dL (12.0-16.0); LYMPHOCYTES # (AUTO) 3.1 K/uL (1.0-4.8); MEAN CORPUSCULAR HEMOGLOBIN 29.7 pg (26.0-34.0); MEAN CORPUSCULAR HGB CONC 33.3 G/dL (31.0-37.0); MEAN CORPUSCULAR VOLUME 89 fL (80-100); MONOCYTES # (AUTO) 1.1 K/uL (0.1-1.0); MONOCYTES % (AUTO) 6.4 % (2.0-9.0); NEUTROPHILS # (AUTO) 12.3 K/uL (1.8-7.7); NEUTROPHILS % (AUTO) 72.3 % (40.0-70.0); PLATELET COUNT (AUTO) 460 K/uL (150-450); RED BLOOD CELL COUNT(AUTO) 4.89 MIL/uL (4.00-5.20); RED CELL DISTRIBUTION WIDTH 13.3 % (11.5-14.5)
[2019-10-28 21:37] LABS: ANION GAP 13 mmol/L (8-16); CALCIUM, TOTAL 9.4 mg/dL (8.8-10.5); CARBON DIOXIDE 22 mmol/L (22-29); CHLORIDE 102 mmol/L (98-107); CREATININE 0.94 mg/dL (0.60-1.30); GLOMERULAR FILTR. RATE CALC > 60 mL/min (>60); GLUCOSE,RANDOM 101 mg/dL (70-110); POTASSIUM 3.7 mmol/L (3.5-5.1); SODIUM SERUM 137 mmol/L (136-145); UREA NITROGEN, BLOOD 13 mg/dL (7-18)
[2019-10-28 21:42] LABS: ALANINE AMINOTRANSFERASE 32 U/L (12-78); ALBUMIN 3.5 g/dL (3.4-5.0); ALKALINE PHOSPHATASE 90 U/L (46-116); ASPARTATE AMINOTRANSFERASE 17 U/L (15-37); BILIRUBIN,TOTAL 0.2 mg/dL (0.1-1.0); TOTAL PROTEIN, SERUM 8.5 g/dL (6.4-8.2)
[2019-10-28 22:08] LABS: LITHIUM < 0.20 mmol/L (0.60-1.20)
[2019-10-28 22:49] VITALS: BP 119/78
== END 2019-10-28 23:00 | disposition home or self-care (01) ==
LOC: EMS 18:05
DX: F31.9 Bipolar disorder, unspecified (principal); F41.9 Anxiety disorder, unspecified; F20.9 Schizophrenia, unspecified; F17.210 Nicotine dependence, cigarettes, uncomplicated; F12.90 Cannabis use, unspecified, uncomplicated
CPT/HCPCS: 36415; 80053; 80178; 85025; 99285; G0480

== ENCOUNTER 2021-06-17 06:06 | Emergency (ER) | payer MEDICAID ==
[~2021-06-17] VITALS: Ht 167.6 cm; Wt 122.7 kg
[~2021-06-17 06:06] MED LIST changes: -DIVA-78 PO; +HYDR50TA36 PO; -LAMO100 PO; +LITH300C3 PO; -LURA80TA2 PO; -RISP3 PO; +TRAZ-257 PO
[2021-06-17 06:09] VITALS: BP 130/82
== END 2021-06-17 06:30 | disposition left against medical advice (07) ==
LOC: EMS 06:06
DX: F31.9 Bipolar disorder, unspecified (principal); G43.909 Migraine, unspecified, not intractable, without status migrainosus; F41.9 Anxiety disorder, unspecified; F20.9 Schizophrenia, unspecified; F12.90 Cannabis use, unspecified, uncomplicated; F17.210 Nicotine dependence, cigarettes, uncomplicated; Z79.899 Other long term (current) drug therapy
CPT/HCPCS: 99281; Z7502

== ENCOUNTER 2022-06-26 01:38 | Inpatient (IN) | payer MEDICAID ==
[~2022-06-26] VITALS: Ht 167.6 cm; Wt 142.6 kg
[2022-06-26] MEDS ORDERED: RISP0.5T39 PO (02:06)
[2022-06-26] MEDS ORDERED: LAMO25TA25 PO (02:06)
[2022-06-26 02:14] LABS: BASOPHILS % (AUTO) 1.1 % (0.0-2.0); EOSINOPHILS % (AUTO) 2.5 % (1.0-6.0); HEMATOCRIT 42.4 % (36-46); HEMOGLOBIN 13.9 g/dL (12.0-16.0); LYMPHOCYTES # (AUTO) 3.2 K/uL (1.0-4.8); LYMPHOCYTES % (AUTO) 20.8 % (22.0-44.0); MEAN CORPUSCULAR HEMOGLOBIN 30.1 pg (26.0-34.0); MEAN CORPUSCULAR HGB CONC 32.8 G/dL (31.0-37.0); MEAN CORPUSCULAR VOLUME 92 fL (80-100); MONOCYTES # (AUTO) 0.7 K/uL (0.1-1.0); MONOCYTES % (AUTO) 4.6 % (2.0-9.0); NEUTROPHILS # (AUTO) 10.9 K/uL (1.8-7.7); PLATELET COUNT (AUTO) 445 K/uL (150-450); RED BLOOD CELL COUNT(AUTO) 4.63 MIL/uL (4.00-5.20); RED CELL DISTRIBUTION WIDTH 13.4 % (11.5-14.5)
[2022-06-26 02:24] LABS: ANION GAP 10 mmol/L (8-16); CALCIUM, TOTAL 9.2 mg/dL (8.8-10.5); CARBON DIOXIDE 27 mmol/L (22-29); CHLORIDE 103 mmol/L (98-107); GLUCOSE,RANDOM 134 mg/dL (70-110); POTASSIUM 3.6 mmol/L (3.5-5.1); SODIUM SERUM 140 mmol/L (136-145); UREA NITROGEN, BLOOD 10 mg/dL (7-18)
[2022-06-26 02:27] LABS: GLOMERULAR FILTR. RATE CALC > 60 mL/min (>60)
[2022-06-26 02:34] LABS: AMPHET/METH SCREEN,URINE NEGATIVE (NEGATIVE); BARBITURATE SCREEN, URINE NEGATIVE (NEGATIVE); BENZODIAZEPINES SCREEN,URINE NEGATIVE (NEGATIVE); CANNABINOID SCREEN,URINE POSITIVE (NEGATIVE); COCAINE SCREEN,URINE NEGATIVE (NEGATIVE); METHADONE SCREEN, URINE NEGATIVE (NEGATIVE); OPIATE SCREEN,URINE NEGATIVE (NEGATIVE)
[2022-06-26 02:35] LABS: ALANINE AMINOTRANSFERASE 32 U/L (12-78); ALBUMIN 3.3 g/dL (3.4-5.0); ALKALINE PHOSPHATASE 93 U/L (46-116); ASPARTATE AMINOTRANSFERASE 17 U/L (15-37); BILIRUBIN,TOTAL 0.2 mg/dL (0.1-1.0); HCG,QUANTITATIVE < 1 mIU/mL (0-6); TOTAL PROTEIN, SERUM 7.8 g/dL (6.4-8.2)
[2022-06-26 02:49] LABS: PHENCYCLIDINE SCREEN,URINE NEGATIVE (NEGATIVE)
[2022-06-26 02:57] LABS: APPEARANCE,URINE HAZY (CLEAR); BILIRUBIN,URINE NEGATIVE (NEGATIVE); GLUCOSE, URINE (UA) NEGATIVE (NEGATIVE); KETONES,URINE NEGATIVE (NEGATIVE); LEUKOCYTE ESTERASE ,URINE TRACE (NEGATIVE); NITRATE,URINE NEGATIVE (NEGATIVE); OCCULT BLOOD,URINE MODERATE (NEGATIVE); PH,URINE 5.5 (5.0-8.0); PROTEIN,URINE TRACE mg/dL (NEGATIVE); SPECIFIC GRAVITIY, URINE 1.027 (1.003-1.030); UROBILINOGEN,URINE <=1.0 mg/dL (<=1.0)
[2022-06-26] MEDS ORDERED: LORazepam 2 MG TABLET PO ONE (03:00)
[2022-06-26] MEDS ORDERED: DiphenhydrAMINE HCL 25 MG CAPSULE PO ONE (03:00)
[2022-06-26 03:07] LABS: BACTERIA,URINE None Seen /HPF (None Seen); CALCIUM OXALATE CRYSTALS,UR Moderate /LPF (None Seen); SQUAMOUS EPITHELIAL CELL,UR Few /LPF (None Seen); WBC,URINE 0-2 /HPF (0-5)
[2022-06-26 03:16] LABS: COVID AG,FIA SOURCE NASAL SWAB
[2022-06-26] MEDS ORDERED: ACETAMINOPHEN 325 MG TABLET PO PRN (04:15)
[2022-06-26] MEDS ORDERED: NICOTINE 21 MG/24 HOUR PATCH TD ONE (10:15)
[2022-06-26] MEDS ORDERED: HALOPERIDOL 5 MG TABLET PO PRN (22:45)
[2022-06-27] MEDS: LORazepam 2 MG TABLET PO PRN ×2 (00:15→11:53)
[2022-06-27] MEDS ORDERED: PNEUMOCOCCAL VACCINE POLYVALENT 0.5 ML VIAL [PPSV23] IM. ONE (01:00)
[2022-06-27] MEDS ORDERED: ACETAMINOPHEN 325 MG TABLET PO PRN (05:15)
[2022-06-27] MEDS ORDERED: CloNIDine HCL 0.1 MG TABLET PO PRN (05:15)
[2022-06-27] MEDS ORDERED: ALBUTEROL SULFATE HFA 90 MCG/PUFF 8 GM INHALER IH PRN (05:15)
[2022-06-27] MEDS ORDERED: MAG HYDROX/AL HYDROX/SIMETH ES 30 ML SUSPENSION UDCUP PO PRN (05:15)
[2022-06-27] MEDS ORDERED: ONDANSETRON HCL 4 MG TABLET PO PRN (05:15)
[2022-06-27] MEDS ORDERED: DOCUSATE SODIUM 100 MG CAPSULE PO PRN (05:15)
[2022-06-27] MEDS ORDERED: IBUPROFEN 400 MG TABLET PO PRN (05:15)
[2022-06-27] MEDS ORDERED: PETROLATUM,WHITE 28 GM JELLY TP PRN (05:15)
[2022-06-27] MEDS ORDERED: MAGNESIUM HYDROXIDE SUSPENSION 30 ML UDCUP PO PRN (05:15)
[2022-06-27] MEDS ORDERED: GuaiFENesin/D-METHORPHAN [SUGAR-FREE] 200-20MG/10 ML SYRUP UDCUP PO PRN (05:15)
[2022-06-27] MEDS ORDERED: LOPERAMIDE HCL 2 MG CAPSULE PO PRN (05:15)
[2022-06-27 08:26] VITALS: BP 126/74
[2022-06-27] MEDS: LamoTRIgine 25 MG TABLET PO SCH ×2 (11:50→17:19)
[2022-06-27] MEDS: LITHIUM CARBONATE 300 MG CAPSULE PO SCH (11:50)
[2022-06-27] MEDS: RisperiDONE 0.5 MG TABLET PO SCH (11:51)
[2022-06-27 16:16] VITALS: BP 114/67
[2022-06-27 20:15] VITALS: BP 129/80
[2022-06-27] MEDS: TraZODone HCL 100 MG TABLET PO SCH (21:01)
[2022-06-28] MEDS: ZOLPIDEM TARTRATE 10 MG TABLET PO PRN (00:07)
[2022-06-28 06:57] LABS: EOSINOPHILS % (AUTO) 3.5 % (1.0-6.0); HEMATOCRIT 44.6 % (36-46); HEMOGLOBIN 14.3 g/dL (12.0-16.0); LYMPHOCYTES % (AUTO) 22.7 % (22.0-44.0); MEAN CORPUSCULAR HEMOGLOBIN 29.5 pg (26.0-34.0); MEAN CORPUSCULAR HGB CONC 32.1 G/dL (31.0-37.0); MEAN CORPUSCULAR VOLUME 92 fL (80-100); MONOCYTES # (AUTO) 0.6 K/uL (0.1-1.0); MONOCYTES % (AUTO) 4.7 % (2.0-9.0); NEUTROPHILS # (AUTO) 8.9 K/uL (1.8-7.7); NEUTROPHILS % (AUTO) 68.1 % (40.0-70.0); PLATELET COUNT (AUTO) 442 K/uL (150-450); RED BLOOD CELL COUNT(AUTO) 4.86 MIL/uL (4.00-5.20); RED CELL DISTRIBUTION WIDTH 13.5 % (11.5-14.5)
[2022-06-28 07:08] LABS: HEMOGLOBIN A1C 5.9 % (3.8-5.6)
[2022-06-28 07:17] LABS: ALANINE AMINOTRANSFERASE 31 U/L (12-78); ALBUMIN 3.2 g/dL (3.4-5.0); ALKALINE PHOSPHATASE 91 U/L (46-116); ANION GAP 10 mmol/L (8-16); ASPARTATE AMINOTRANSFERASE 15 U/L (15-37); BILIRUBIN,TOTAL 0.2 mg/dL (0.1-1.0); CARBON DIOXIDE 25 mmol/L (22-29); CHLORIDE 103 mmol/L (98-107); GLOMERULAR FILTR. RATE CALC > 60 mL/min (>60); GLUCOSE,RANDOM 140 mg/dL (70-110); POTASSIUM 4.1 mmol/L (3.5-5.1); SODIUM SERUM 138 mmol/L (136-145); THYROID STIMULATING HORMONE 1.42 uIU/mL (0.36-3.74); UREA NITROGEN, BLOOD 13 mg/dL (7-18)
[2022-06-28 08:02] LABS: CHOL/HDL RATIO 4.5 (3.9-5.7); CHOLESTEROL 200 mg/dL (131-200); HDL CHOLESTEROL 44 mg/dL (40-60); LDL CHOL (CALC.) 109 mg/dL (0-130); TRIGLYCERIDES 234 mg/dL (15-150)
[2022-06-28 08:17] VITALS: BP 164/75
[2022-06-28] MEDS: LITHIUM CARBONATE 300 MG CAPSULE PO SCH (09:05)
[2022-06-28] MEDS: RisperiDONE 0.5 MG TABLET PO SCH (09:05)
[2022-06-28] MEDS: LORazepam 2 MG TABLET PO PRN ×2 (09:05→22:52)
[2022-06-28] MEDS: LamoTRIgine 25 MG TABLET PO SCH ×2 (09:05→17:27)
[2022-06-28] MEDS: NICOTINE 14 MG/24 HOUR PATCH TD PRN (10:02)
[2022-06-28 16:07] VITALS: BP 142/91
[2022-06-28] MEDS: HydrALAZINE HCL 25 MG TABLET PO SCH (17:27)
[2022-06-28] MEDS: TraZODone HCL 100 MG TABLET PO SCH (20:38)
[2022-06-29 08:12] VITALS: BP 147/91
[2022-06-29] MEDS: HydrALAZINE HCL 25 MG TABLET PO SCH ×2 (09:58→17:38)
[2022-06-29] MEDS: LORazepam 2 MG TABLET PO PRN (09:58)
[2022-06-29] MEDS: LamoTRIgine 25 MG TABLET PO SCH ×2 (09:58→17:38)
[2022-06-29] MEDS: RisperiDONE 0.5 MG TABLET PO SCH (09:58)
[2022-06-29] MEDS: LITHIUM CARBONATE 300 MG CAPSULE PO SCH (10:00)
[2022-06-29] MEDS: NICOTINE 14 MG/24 HOUR PATCH TD PRN (15:33)
[2022-06-29 16:16] VITALS: BP 149/87
[2022-06-29] MEDS: TraZODone HCL 100 MG TABLET PO SCH (20:59)
[2022-06-29] MEDS: ZOLPIDEM TARTRATE 10 MG TABLET PO PRN (21:48)
[2022-06-30 06:12] LABS: BASOPHILS % (AUTO) 0.8 % (0.0-2.0); EOSINOPHILS % (AUTO) 2.3 % (1.0-6.0); HEMATOCRIT 44.7 % (36-46); LYMPHOCYTES # (AUTO) 3.1 K/uL (1.0-4.8); LYMPHOCYTES % (AUTO) 17.6 % (22.0-44.0); MEAN CORPUSCULAR HEMOGLOBIN 30.6 pg (26.0-34.0); MEAN CORPUSCULAR HGB CONC 33.6 G/dL (31.0-37.0); MEAN CORPUSCULAR VOLUME 91 fL (80-100); MONOCYTES # (AUTO) 0.9 K/uL (0.1-1.0); MONOCYTES % (AUTO) 5.1 % (2.0-9.0); NEUTROPHILS # (AUTO) 13.1 K/uL (1.8-7.7); NEUTROPHILS % (AUTO) 74.2 % (40.0-70.0); PLATELET COUNT (AUTO) 435 K/uL (150-450); RED BLOOD CELL COUNT(AUTO) 4.91 MIL/uL (4.00-5.20); RED CELL DISTRIBUTION WIDTH 13.2 % (11.5-14.5)
[2022-06-30] MEDS: LamoTRIgine 25 MG TABLET PO SCH ×2 (08:06→16:02)
[2022-06-30] MEDS: LITHIUM CARBONATE 300 MG CAPSULE PO SCH (08:06)
[2022-06-30] MEDS: HydrALAZINE HCL 25 MG TABLET PO SCH ×2 (08:06→16:02)
[2022-06-30] MEDS: RisperiDONE 0.5 MG TABLET PO SCH (08:06)
[2022-06-30 08:48] VITALS: BP 158/96
[2022-06-30 16:37] VITALS: BP 128/82
[2022-06-30] MEDS: TraZODone HCL 100 MG TABLET PO SCH (20:47)
[2022-06-30] MEDS: CEPHALEXIN MONOHYDRATE 250 MG CAPSULE PO SCH (23:57)
[2022-06-30] MEDS: ZOLPIDEM TARTRATE 10 MG TABLET PO PRN (23:57)
[2022-07-01] MEDS: HydrALAZINE HCL 25 MG TABLET PO SCH ×2 (08:17→16:27)
[2022-07-01] MEDS: LITHIUM CARBONATE 300 MG CAPSULE PO SCH (08:17)
[2022-07-01] MEDS: RisperiDONE 0.5 MG TABLET PO SCH (08:17)
[2022-07-01] MEDS: LamoTRIgine 25 MG TABLET PO SCH ×2 (08:17→16:27)
[2022-07-01] MEDS: CEPHALEXIN MONOHYDRATE 250 MG CAPSULE PO SCH ×3 (08:17→23:28)
[2022-07-01] MEDS: LORazepam 2 MG TABLET PO PRN (08:20)
[2022-07-01 09:35] VITALS: BP 140/77
[2022-07-01 16:00] VITALS: BP 140/99
[2022-07-01] MEDS: TraZODone HCL 100 MG TABLET PO SCH (20:40)
[2022-07-02 04:07] LABS: COVID AG,FIA SOURCE NASAL SWAB
[2022-07-02] MEDS: LORazepam 2 MG TABLET PO PRN (05:05)
[2022-07-02 07:48] LABS: BASOPHILS % (AUTO) 0.8 % (0.0-2.0); EOSINOPHILS % (AUTO) 1.9 % (1.0-6.0); HEMATOCRIT 43.5 % (36-46); HEMOGLOBIN 14.8 g/dL (12.0-16.0); LYMPHOCYTES # (AUTO) 2.3 K/uL (1.0-4.8); MEAN CORPUSCULAR HGB CONC 34.1 G/dL (31.0-37.0); MEAN CORPUSCULAR VOLUME 91 fL (80-100); MONOCYTES # (AUTO) 0.6 K/uL (0.1-1.0); MONOCYTES % (AUTO) 4.6 % (2.0-9.0); NEUTROPHILS # (AUTO) 10.3 K/uL (1.8-7.7); NEUTROPHILS % (AUTO) 75.7 % (40.0-70.0); PLATELET COUNT (AUTO) 426 K/uL (150-450); RED BLOOD CELL COUNT(AUTO) 4.78 MIL/uL (4.00-5.20); RED CELL DISTRIBUTION WIDTH 13.2 % (11.5-14.5)
[2022-07-02 08:29] VITALS: BP 169/94
[2022-07-02] MEDS: CEPHALEXIN MONOHYDRATE 250 MG CAPSULE PO SCH ×2 (08:34→15:56)
[2022-07-02] MEDS: LITHIUM CARBONATE 300 MG CAPSULE PO SCH (08:34)
[2022-07-02] MEDS: LamoTRIgine 25 MG TABLET PO SCH ×2 (08:35→15:56)
[2022-07-02] MEDS: HydrALAZINE HCL 25 MG TABLET PO SCH ×2 (08:35→15:56)
[2022-07-02] MEDS: RisperiDONE 0.5 MG TABLET PO SCH (08:35)
[2022-07-02] MEDS ORDERED: TRAZ-257 PO (15:40)
[2022-07-02] MEDS ORDERED: LAMO25TA25 PO (15:40)
[2022-07-02] MEDS ORDERED: RISP0.5T66 PO (15:40)
[2022-07-02] MEDS ORDERED: LITH300C3 PO (15:40)
[2022-07-02 16:10] VITALS: BP 133/84
[2022-07-02] MEDS ORDERED: CEPH250S56 PO (16:50)
== END 2022-07-02 18:27 | disposition home or self-care (01) | DRG 750 ==
LOC: EMS 01:39 → 3EC 22:31
PROVIDERS: ADMIT Psychiatry & Neurology Child & Adolescent Psychiatry; ATTEND Psychiatry & Neurology Child & Adolescent Psychiatry
DX: F25.1 Schizoaffective disorder, depressive type (principal); D72.829 Elevated white blood cell count, unspecified; F17.210 Nicotine dependence, cigarettes, uncomplicated; Z20.822 Contact with and (suspected) exposure to COVID-19; I10 Essential (primary) hypertension; J45.909 Unspecified asthma, uncomplicated; R73.9 Hyperglycemia, unspecified; F10.10 Alcohol abuse, uncomplicated; F12.10 Cannabis abuse, uncomplicated; Y90.9 Presence of alcohol in blood, level not specified; Z71.41 Alcohol abuse counseling and surveillance of alcoholic
CPT/HCPCS: 80053; 80061; 80307; 81001; 83036; 84443; 84702; 85025; 99291; G0480

== ENCOUNTER 2022-07-29 20:29 | Inpatient (IN) | payer MEDICAID ==
[~2022-07-29] VITALS: Ht 167.6 cm; Wt 136.5 kg
[~2022-07-29 20:29] MED LIST changes: +CEPH250S56 PO; -HYDR50TA36 PO; +LAMO25TA25 PO; +RISP0.5T66 PO
[2022-07-29 22:55] LABS: BASOPHILS % (AUTO) 0.6 % (0.0-2.0); HEMATOCRIT 45.3 % (36-46); HEMOGLOBIN 15.1 g/dL (12.0-16.0); LYMPHOCYTES # (AUTO) 2.4 K/uL (1.0-4.8); LYMPHOCYTES % (AUTO) 11.6 % (22.0-44.0); MEAN CORPUSCULAR HEMOGLOBIN 29.9 pg (26.0-34.0); MEAN CORPUSCULAR HGB CONC 33.2 G/dL (31.0-37.0); MEAN CORPUSCULAR VOLUME 90 fL (80-100); MONOCYTES # (AUTO) 1.2 K/uL (0.1-1.0); MONOCYTES % (AUTO) 5.6 % (2.0-9.0); NEUTROPHILS # (AUTO) 16.9 K/uL (1.8-7.7); NEUTROPHILS % (AUTO) 81.2 % (40.0-70.0); PLATELET COUNT (AUTO) 471 K/uL (150-450); RED BLOOD CELL COUNT(AUTO) 5.03 MIL/uL (4.00-5.20); RED CELL DISTRIBUTION WIDTH 13.2 % (11.5-14.5)
[2022-07-29 23:05] LABS: ANION GAP 11 mmol/L (8-16); CALCIUM, TOTAL 9.5 mg/dL (8.8-10.5); CARBON DIOXIDE 24 mmol/L (22-29); CHLORIDE 100 mmol/L (98-107); CREATININE 0.93 mg/dL (0.60-1.30); GLOMERULAR FILTR. RATE CALC > 60 mL/min (>60); GLUCOSE,RANDOM 109 mg/dL (70-110); POTASSIUM 3.6 mmol/L (3.5-5.1); SODIUM SERUM 135 mmol/L (136-145); UREA NITROGEN, BLOOD 7 mg/dL (7-18)
[2022-07-29 23:10] LABS: ALANINE AMINOTRANSFERASE 31 U/L (12-78); ALBUMIN 3.8 g/dL (3.4-5.0); ALKALINE PHOSPHATASE 106 U/L (46-116); ASPARTATE AMINOTRANSFERASE 18 U/L (15-37); BILIRUBIN,TOTAL 0.4 mg/dL (0.1-1.0); TOTAL PROTEIN, SERUM 8.9 g/dL (6.4-8.2)
[2022-07-29 23:11] LABS: ACETAMINOPHEN < 2 mcg/mL (10-30)
[2022-07-29 23:29] LABS: SALICYLATE 1.6 mg/dL (2.8-20.0)
[2022-07-29 23:57] LABS: COVID AG,FIA SOURCE NASOPHARYNGEAL
[2022-07-30] MEDS ORDERED: HALOPERIDOL 5 MG TABLET PO PRN (00:45)
[2022-07-30] MEDS ORDERED: LORazepam 2 MG TABLET PO PRN (00:45)
[2022-07-30] MEDS ORDERED: ZOLPIDEM TARTRATE 10 MG TABLET PO PRN (00:45)
[2022-07-30 03:58] VITALS: BP 137/87
[2022-07-30 04:10] VITALS: BP 137/87
[2022-07-30 04:22] VITALS: BP 137/87
[2022-07-30] MEDS ORDERED: PNEUMOCOCCAL VACCINE POLYVALENT 0.5 ML VIAL [PPSV23] IM. ONE (05:45)
[2022-07-30 08:51] VITALS: BP 135/91
[2022-07-30 10:16] LABS: AMPHET/METH SCREEN,URINE NEGATIVE (NEGATIVE); BARBITURATE SCREEN, URINE NEGATIVE (NEGATIVE); BENZODIAZEPINES SCREEN,URINE NEGATIVE (NEGATIVE); CANNABINOID SCREEN,URINE NEGATIVE (NEGATIVE); COCAINE SCREEN,URINE NEGATIVE (NEGATIVE); METHADONE SCREEN, URINE NEGATIVE (NEGATIVE); OPIATE SCREEN,URINE NEGATIVE (NEGATIVE); PHENCYCLIDINE SCREEN,URINE NEGATIVE (NEGATIVE)
[2022-07-30 10:22] LABS: APPEARANCE,URINE CLEAR (CLEAR); BILIRUBIN,URINE NEGATIVE (NEGATIVE); GLUCOSE, URINE (UA) NEGATIVE (NEGATIVE); KETONES,URINE NEGATIVE (NEGATIVE); LEUKOCYTE ESTERASE ,URINE NEGATIVE (NEGATIVE); NITRATE,URINE NEGATIVE (NEGATIVE); OCCULT BLOOD,URINE TRACE (NEGATIVE); PH,URINE 6.5 (5.0-8.0); PROTEIN,URINE TRACE mg/dL (NEGATIVE); SPECIFIC GRAVITIY, URINE 1.017 (1.003-1.030); UROBILINOGEN,URINE <=1.0 mg/dL (<=1.0)
[2022-07-30 10:23] LABS: BACTERIA,URINE None Seen /HPF (None Seen); RBC,URINE 0-2 /HPF (0-2); WBC,URINE None Seen /HPF (0-5)
[2022-07-30] MEDS ORDERED: CITA-144 PO (13:02)
[2022-07-30] MEDS: CITALOPRAM HYDROBROMIDE 20 MG TABLET PO SCH (14:02)
[2022-07-30] MEDS ORDERED: ALBUTEROL SULFATE HFA 90 MCG/PUFF 8 GM INHALER IH PRN (15:15)
[2022-07-30] MEDS ORDERED: MAG HYDROX/AL HYDROX/SIMETH ES 30 ML SUSPENSION UDCUP PO PRN (15:15)
[2022-07-30] MEDS ORDERED: GuaiFENesin/D-METHORPHAN [SUGAR-FREE] 200-20MG/10 ML SYRUP UDCUP PO PRN (15:15)
[2022-07-30] MEDS ORDERED: ACETAMINOPHEN 325 MG TABLET PO PRN (15:15)
[2022-07-30] MEDS ORDERED: LOPERAMIDE HCL 2 MG CAPSULE PO PRN (15:15)
[2022-07-30] MEDS ORDERED: MAGNESIUM HYDROXIDE SUSPENSION 30 ML UDCUP PO PRN (15:15)
[2022-07-30] MEDS ORDERED: CloNIDine HCL 0.1 MG TABLET PO PRN (15:15)
[2022-07-30] MEDS ORDERED: PETROLATUM,WHITE 28 GM JELLY TP PRN (15:15)
[2022-07-30] MEDS ORDERED: IBUPROFEN 400 MG TABLET PO PRN (15:15)
[2022-07-30] MEDS ORDERED: NICOTINE 14 MG/24 HOUR PATCH TD PRN (15:15)
[2022-07-30] MEDS ORDERED: ONDANSETRON HCL 4 MG TABLET PO PRN (15:15)
[2022-07-30] MEDS ORDERED: DOCUSATE SODIUM 100 MG CAPSULE PO PRN (15:15)
[2022-07-30] MEDS: LURASIDONE HCL 40 MG TABLET PO SCH (17:33)
[2022-07-30] MEDS: BACITRACIN 28 GM OINTMENT TP SCH (21:05)
[2022-07-30 22:29] VITALS: BP 134/83
[2022-07-31 08:00] LABS: BASOPHILS % (AUTO) 0.8 % (0.0-2.0); EOSINOPHILS % (AUTO) 1.5 % (1.0-6.0); HEMATOCRIT 43.9 % (36-46); HEMOGLOBIN 14.9 g/dL (12.0-16.0); LYMPHOCYTES # (AUTO) 2.8 K/uL (1.0-4.8); LYMPHOCYTES % (AUTO) 18.8 % (22.0-44.0); MEAN CORPUSCULAR HEMOGLOBIN 30.5 pg (26.0-34.0); MEAN CORPUSCULAR VOLUME 90 fL (80-100); MONOCYTES # (AUTO) 1.1 K/uL (0.1-1.0); MONOCYTES % (AUTO) 7.2 % (2.0-9.0); NEUTROPHILS # (AUTO) 10.9 K/uL (1.8-7.7); NEUTROPHILS % (AUTO) 71.7 % (40.0-70.0); PLATELET COUNT (AUTO) 440 K/uL (150-450); RED BLOOD CELL COUNT(AUTO) 4.88 MIL/uL (4.00-5.20)
[2022-07-31 08:30] VITALS: BP 125/89
[2022-07-31] MEDS: BACITRACIN 28 GM OINTMENT TP SCH ×2 (08:43→17:51)
[2022-07-31] MEDS: CITALOPRAM HYDROBROMIDE 20 MG TABLET PO SCH (08:45)
[2022-07-31 16:27] VITALS: BP 122/60
[2022-07-31] MEDS: LURASIDONE HCL 40 MG TABLET PO SCH (17:51)
[2022-07-31 21:46] VITALS: BP 128/66
[2022-08-01 08:00] VITALS: BP 143/73
[2022-08-01] MEDS: CITALOPRAM HYDROBROMIDE 20 MG TABLET PO SCH (09:04)
[2022-08-01] MEDS: BACITRACIN 28 GM OINTMENT TP SCH ×2 (11:29→16:48)
[2022-08-01 16:00] VITALS: BP 141/92
[2022-08-01] MEDS: LURASIDONE HCL 40 MG TABLET PO SCH (16:48)
[2022-08-01 21:31] VITALS: BP 121/76
[2022-08-02 08:20] VITALS: BP 140/85
[2022-08-02] MEDS: BACITRACIN 28 GM OINTMENT TP SCH ×2 (08:33→16:37)
[2022-08-02] MEDS: CITALOPRAM HYDROBROMIDE 20 MG TABLET PO SCH (08:33)
[2022-08-02 16:18] VITALS: BP 159/75
[2022-08-02] MEDS: LURASIDONE HCL 40 MG TABLET PO SCH (16:36)
[2022-08-03 08:30] VITALS: BP 130/66
[2022-08-03] MEDS: BACITRACIN 28 GM OINTMENT TP SCH (08:54)
[2022-08-03] MEDS: CITALOPRAM HYDROBROMIDE 20 MG TABLET PO SCH (08:54)
[2022-08-03] MEDS ORDERED: CITA-144 PO (13:37)
[2022-08-03] MEDS ORDERED: LURA40TA2 PO (13:37)
== END 2022-08-03 17:48 | disposition home or self-care (01) | DRG 750 ==
LOC: EMS 20:38 → 3EI 07-30 01:02
PROVIDERS: ADMIT Psychiatry & Neurology Child & Adolescent Psychiatry; ATTEND Psychiatry & Neurology Child & Adolescent Psychiatry
DX: F25.0 Schizoaffective disorder, bipolar type (principal); E87.1 Hypo-osmolality and hyponatremia; D72.829 Elevated white blood cell count, unspecified; E66.01 Morbid (severe) obesity due to excess calories; F60.3 Borderline personality disorder; I10 Essential (primary) hypertension; J45.909 Unspecified asthma, uncomplicated; T39.1X2A Poisoning by 4-Aminophenol derivatives, intentional self-harm, initial encounter; F41.9 Anxiety disorder, unspecified; F12.90 Cannabis use, unspecified, uncomplicated; Z20.822 Contact with and (suspected) exposure to COVID-19; Z79.899 Other long term (current) drug therapy; Z87.891 Personal history of nicotine dependence; Y92.89 Other specified places as the place of occurrence of the external cause; Z68.42 Body mass index [BMI] 45.0-49.9, adult
CPT/HCPCS: 80053; 80307; 81001; 84703; 85025; 99285; G0480; G0481

== ENCOUNTER 2023-04-05 09:01 | Inpatient (IN) | payer MEDICAID ==
[~2023-04-05] VITALS: Ht 167.6 cm; Wt 142.4 kg
[~2023-04-05 09:01] MED LIST changes: -CEPH250S56 PO; +CITA-144 PO; -LAMO25TA25 PO; -LITH300C3 PO; +LURA40TA2 PO; -RISP0.5T66 PO; -TRAZ-257 PO
[2023-04-05 09:27] LABS: BASOPHILS % (AUTO) 0.8 % (0.0-2.0); EOSINOPHILS % (AUTO) 0.7 % (1.0-6.0); HEMATOCRIT 42.2 % (36-46); HEMOGLOBIN 14.1 g/dL (12.0-16.0); LYMPHOCYTES % (AUTO) 15.6 % (22.0-44.0); MEAN CORPUSCULAR HEMOGLOBIN 30.1 pg (26.0-34.0); MEAN CORPUSCULAR HGB CONC 33.5 G/dL (31.0-37.0); MEAN CORPUSCULAR VOLUME 90 fL (80-100); MONOCYTES # (AUTO) 1.2 K/uL (0.1-1.0); MONOCYTES % (AUTO) 6.2 % (2.0-9.0); NEUTROPHILS # (AUTO) 14.6 K/uL (1.8-7.7); NEUTROPHILS % (AUTO) 76.7 % (40.0-70.0); PLATELET COUNT (AUTO) 472 K/uL (150-450); RED BLOOD CELL COUNT(AUTO) 4.69 MIL/uL (4.00-5.20); RED CELL DISTRIBUTION WIDTH 13.3 % (11.5-14.5)
[2023-04-05] MEDS ORDERED: RISP1TAB48 PO (09:29)
[2023-04-05] MEDS ORDERED: PROP20TA96 PO (09:29)
[2023-04-05] MEDS ORDERED: LITH300C3 PO (09:29)
[2023-04-05] MEDS ORDERED: NICO-803 TP (09:29)
[2023-04-05 09:39] LABS: ANION GAP 12 mmol/L (8-16); CALCIUM, TOTAL 9.8 mg/dL (8.8-10.5); CARBON DIOXIDE 23 mmol/L (22-29); CHLORIDE 100 mmol/L (98-107); CREATININE 0.88 mg/dL (0.60-1.30); GLOMERULAR FILTR. RATE CALC > 60 mL/min (>60); GLUCOSE,RANDOM 106 mg/dL (70-110); SODIUM SERUM 135 mmol/L (136-145); UREA NITROGEN, BLOOD 12 mg/dL (7-18)
[2023-04-05 09:50] LABS: ALANINE AMINOTRANSFERASE 49 U/L (12-78); ALBUMIN 3.4 g/dL (3.4-5.0); ALKALINE PHOSPHATASE 90 U/L (46-116); ASPARTATE AMINOTRANSFERASE 30 U/L (15-37); BILIRUBIN,TOTAL 0.2 mg/dL (0.1-1.0); HCG,QUANTITATIVE < 1 mIU/mL (0-6); TOTAL PROTEIN, SERUM 8.1 g/dL (6.4-8.2)
[2023-04-05 09:54] LABS: LITHIUM 0.32 mmol/L (0.60-1.20)
[2023-04-05 09:56] LABS: ALCOHOL, BLOOD (SERUM) < 3 mg/dL (0-10)
[2023-04-05] MEDS ORDERED: HALOPERIDOL 5 MG TABLET PO PRN (10:30)
[2023-04-05 10:31] LABS: COVID AG,FIA SOURCE NASAL SWAB
[2023-04-05 10:39] LABS: APPEARANCE,URINE CLEAR (CLEAR); BILIRUBIN,URINE NEGATIVE (NEGATIVE); COLOR,URINE COLORLESS (YELLOW); GLUCOSE, URINE (UA) NEGATIVE (NEGATIVE); KETONES,URINE NEGATIVE (NEGATIVE); LEUKOCYTE ESTERASE ,URINE NEGATIVE (NEGATIVE); NITRATE,URINE NEGATIVE (NEGATIVE); OCCULT BLOOD,URINE NEGATIVE (NEGATIVE); PROTEIN,URINE NEGATIVE (NEGATIVE); SPECIFIC GRAVITIY, URINE 1.009 (1.003-1.030); UROBILINOGEN,URINE <=1.0 mg/dL (<=1.0)
[2023-04-05 10:46] LABS: AMPHET/METH SCREEN,URINE NEGATIVE (NEGATIVE); BARBITURATE SCREEN, URINE NEGATIVE (NEGATIVE); BENZODIAZEPINES SCREEN,URINE NEGATIVE (NEGATIVE); CANNABINOID SCREEN,URINE POSITIVE (NEGATIVE); COCAINE SCREEN,URINE NEGATIVE (NEGATIVE); METHADONE SCREEN, URINE NEGATIVE (NEGATIVE); OPIATE SCREEN,URINE NEGATIVE (NEGATIVE); PHENCYCLIDINE SCREEN,URINE NEGATIVE (NEGATIVE)
[2023-04-05 10:50] LABS: ALCOHOL, URINE DRUG SCREEN NEGATIVE (NEGATIVE)
[2023-04-05] MEDS: LORazepam 2 MG TABLET PO PRN (11:05)
[2023-04-05 11:06] LABS: SARS-COV2 (COVID) ANTIGEN,FIA Negative (Negative)
[2023-04-05 14:58] VITALS: BP 105/68; PULSE 95; RESP 20; TEMP 98.2
[2023-04-05 17:17] VITALS: BP 155/96; PULSE 92; RESP 18; TEMP 97.5; O2SAT 97
[2023-04-05] MEDS ORDERED: INFLUENZA VIRUS VACCINE QVS 2023-24 (6MO+)/PF 60 MCG/0.5 ML SYRINGE IM. ONE (18:00)
[2023-04-05 21:18] VITALS: BP 145/90; PULSE 87; RESP 18; TEMP 98.1; O2SAT 98
[2023-04-06] MEDS ORDERED: LOPERAMIDE HCL 2 MG CAPSULE PO PRN (06:45)
[2023-04-06] MEDS ORDERED: MAGNESIUM HYDROXIDE SUSPENSION 30 ML UDCUP PO PRN (06:45)
[2023-04-06] MEDS ORDERED: ALBUTEROL SULFATE HFA 90 MCG/PUFF 8 GM INHALER IH PRN (06:45)
[2023-04-06] MEDS ORDERED: GuaiFENesin/D-METHORPHAN [SUGAR-FREE] 200-20MG/10 ML SYRUP UDCUP PO PRN (06:45)
[2023-04-06] MEDS ORDERED: IBUPROFEN 400 MG TABLET PO PRN (06:45)
[2023-04-06] MEDS ORDERED: ACETAMINOPHEN 325 MG TABLET PO PRN (06:45)
[2023-04-06] MEDS ORDERED: MAG HYDROX/ALUMINUM HYD/SIMETH ES 30 ML SUSPENSION UDCUP PO PRN (06:45)
[2023-04-06] MEDS ORDERED: CloNIDine HCL 0.1 MG TABLET PO PRN (06:45)
[2023-04-06] MEDS ORDERED: DOCUSATE SODIUM 100 MG CAPSULE PO PRN (06:45)
[2023-04-06] MEDS ORDERED: PETROLATUM,WHITE 28 GM JELLY TP PRN (06:45)
[2023-04-06] MEDS ORDERED: ONDANSETRON HCL 4 MG TABLET PO PRN (06:45)
[2023-04-06 08:46] VITALS: BP 123/66; PULSE 88; RESP 17; TEMP 97; O2SAT 98
[2023-04-06] MEDS: CITALOPRAM HYDROBROMIDE 20 MG TABLET PO SCH ×2 (12:15→12:31)
[2023-04-06] MEDS: RisperiDONE 2 MG TABLET PO SCH (12:31)
[2023-04-06] MEDS: LITHIUM CARBONATE 300 MG CAPSULE PO SCH (16:33)
[2023-04-06 20:37] VITALS: RESP 18
[2023-04-07] MEDS: LITHIUM CARBONATE 300 MG CAPSULE PO SCH ×3 (06:56→17:02)
[2023-04-07 07:56] LABS: BASOPHILS % (AUTO) 0.8 % (0.0-2.0); EOSINOPHILS % (AUTO) 1.9 % (1.0-6.0); HEMATOCRIT 41.9 % (36-46); LYMPHOCYTES # (AUTO) 3.7 K/uL (1.0-4.8); LYMPHOCYTES % (AUTO) 23.3 % (22.0-44.0); MEAN CORPUSCULAR HEMOGLOBIN 30.3 pg (26.0-34.0); MEAN CORPUSCULAR HGB CONC 33.4 G/dL (31.0-37.0); MEAN CORPUSCULAR VOLUME 91 fL (80-100); MONOCYTES # (AUTO) 0.8 K/uL (0.1-1.0); NEUTROPHILS # (AUTO) 11.1 K/uL (1.8-7.7); PLATELET COUNT (AUTO) 442 K/uL (150-450); RED BLOOD CELL COUNT(AUTO) 4.62 MIL/uL (4.00-5.20); RED CELL DISTRIBUTION WIDTH 13.2 % (11.5-14.5)
[2023-04-07 08:20] LABS: THYROID STIMULATING HORMONE 2.44 uIU/mL (0.36-3.74)
[2023-04-07 08:26] LABS: HEMOGLOBIN A1C 5.7 % (3.8-5.6)
[2023-04-07 08:51] LABS: CHOL/HDL RATIO 4.5 (3.9-5.7)
[2023-04-07] MEDS: CITALOPRAM HYDROBROMIDE 20 MG TABLET PO SCH (09:00)
[2023-04-07 09:13] VITALS: BP 137/108; PULSE 100; RESP 18; TEMP 97.9; O2SAT 98
[2023-04-07] MEDS: RisperiDONE 2 MG TABLET PO SCH (11:28)
[2023-04-07 22:12] VITALS: BP 138/96; PULSE 89; RESP 18; TEMP 98.1
[2023-04-07] MEDS: LORazepam 2 MG TABLET PO PRN (22:52)
[2023-04-08] MEDS: LITHIUM CARBONATE 300 MG CAPSULE PO SCH ×3 (06:40→17:30)
[2023-04-08] MEDS: RisperiDONE 2 MG TABLET PO SCH (08:55)
[2023-04-08] MEDS: CITALOPRAM HYDROBROMIDE 20 MG TABLET PO SCH (08:57)
[2023-04-08 09:07] VITALS: BP 126/80; PULSE 104; RESP 18; TEMP 97.2; O2SAT 97
[2023-04-08 20:14] VITALS: TEMP 98
[2023-04-08] MEDS: LORazepam 2 MG TABLET PO PRN (22:35)
[2023-04-09] MEDS: LITHIUM CARBONATE 300 MG CAPSULE PO SCH ×3 (06:56→17:10)
[2023-04-09] MEDS: RisperiDONE 2 MG TABLET PO SCH (09:27)
[2023-04-09] MEDS: CITALOPRAM HYDROBROMIDE 20 MG TABLET PO SCH (09:27)
[2023-04-09 10:26] VITALS: BP 117/65; PULSE 101; RESP 18; TEMP 97.9; O2SAT 99
[2023-04-09 20:45] VITALS: BP 114/72; PULSE 97; RESP 18; TEMP 97.7; O2SAT 98
[2023-04-09] MEDS: ZOLPIDEM TARTRATE 10 MG TABLET PO PRN (21:48)
[2023-04-10] MEDS: LITHIUM CARBONATE 300 MG CAPSULE PO SCH ×3 (06:32→17:30)
[2023-04-10] MEDS: RisperiDONE 2 MG TABLET PO SCH (09:19)
[2023-04-10] MEDS: ESCITALOPRAM OXALATE 10 MG TABLET PO SCH (09:19)
[2023-04-10 11:31] VITALS: BP 151/92; PULSE 102; RESP 20; TEMP 97.3; O2SAT 100
[2023-04-10] MEDS: NICOTINE 14 MG/24 HOUR PATCH TD PRN (15:15)
[2023-04-10 20:30] VITALS: BP 110/86; PULSE 80; RESP 18; TEMP 98.6; O2SAT 97
[2023-04-10] MEDS: ZOLPIDEM TARTRATE 10 MG TABLET PO PRN (21:43)
[2023-04-10] MEDS: LORazepam 2 MG TABLET PO PRN (23:05)
[2023-04-11] MEDS: LITHIUM CARBONATE 300 MG CAPSULE PO SCH ×3 (06:57→17:36)
[2023-04-11] MEDS: NICOTINE 14 MG/24 HOUR PATCH TD PRN (09:11)
[2023-04-11] MEDS: RisperiDONE 2 MG TABLET PO SCH (09:11)
[2023-04-11] MEDS: LORazepam 2 MG TABLET PO PRN (09:11)
[2023-04-11] MEDS: ESCITALOPRAM OXALATE 10 MG TABLET PO SCH (09:14)
[2023-04-11 09:46] VITALS: BP 105/67; PULSE 106; RESP 18; TEMP 98; O2SAT 98
[2023-04-11 20:25] VITALS: BP 125/70; PULSE 100; RESP 19; TEMP 97.2; O2SAT 97
[2023-04-11] MEDS: ZOLPIDEM TARTRATE 10 MG TABLET PO PRN (21:09)
[2023-04-12 06:23] LABS: BASOPHILS % (AUTO) 0.8 % (0.0-2.0); EOSINOPHILS % (AUTO) 2.7 % (1.0-6.0); HEMOGLOBIN 14.2 g/dL (12.0-16.0); LYMPHOCYTES # (AUTO) 4.6 K/uL (1.0-4.8); MEAN CORPUSCULAR HEMOGLOBIN 30.9 pg (26.0-34.0); MEAN CORPUSCULAR HGB CONC 33.9 G/dL (31.0-37.0); MEAN CORPUSCULAR VOLUME 91 fL (80-100); MONOCYTES # (AUTO) 1.1 K/uL (0.1-1.0); MONOCYTES % (AUTO) 5.9 % (2.0-9.0); NEUTROPHILS # (AUTO) 11.5 K/uL (1.8-7.7); NEUTROPHILS % (AUTO) 64.6 % (40.0-70.0); PLATELET COUNT (AUTO) 437 K/uL (150-450); RED BLOOD CELL COUNT(AUTO) 4.61 MIL/uL (4.00-5.20); RED CELL DISTRIBUTION WIDTH 13.2 % (11.5-14.5); WHITE BLOOD COUNT (AUTO) 17.8 K/uL (4.5-11.0)
[2023-04-12] MEDS: LITHIUM CARBONATE 300 MG CAPSULE PO SCH ×3 (06:54→18:03)
[2023-04-12] MEDS: ESCITALOPRAM OXALATE 10 MG TABLET PO SCH (08:48)
[2023-04-12] MEDS: RisperiDONE 2 MG TABLET PO SCH (08:48)
[2023-04-12 10:23] VITALS: BP 121/75; PULSE 107; RESP 18; TEMP 97.2; O2SAT 96
[2023-04-12] MEDS ORDERED: RISP2TAB86 PO (17:18)
[2023-04-12] MEDS ORDERED: ESCI-8 PO (17:18)
[2023-04-12] MEDS ORDERED: LITH300C3 PO (17:18)
== END 2023-04-12 18:30 | disposition home or self-care (01) | DRG 750 ==
LOC: EMS 09:06 → 3EX 16:35
PROVIDERS: ADMIT Psychiatry & Neurology Child & Adolescent Psychiatry; ATTEND Psychiatry & Neurology Child & Adolescent Psychiatry
DX: F25.0 Schizoaffective disorder, bipolar type (principal); R45.851 Suicidal ideations; Z68.43 Body mass index [BMI] 50.0-59.9, adult; Z91.148 Patient's other noncompliance with medication regimen for other reason; F41.9 Anxiety disorder, unspecified; F25.1 Schizoaffective disorder, depressive type; Z20.822 Contact with and (suspected) exposure to COVID-19; I10 Essential (primary) hypertension; E78.5 Hyperlipidemia, unspecified; R73.03 Prediabetes; E66.9 Obesity, unspecified; D72.829 Elevated white blood cell count, unspecified; Z87.891 Personal history of nicotine dependence; Z88.8 Allergy status to other drugs, medicaments and biological substances; Z79.899 Other long term (current) drug therapy
CPT/HCPCS: 80053; 80061; 80178; 80307; 81003; 83036; 84443; 84702; 85025; 99285; G0378; G0480

== ENCOUNTER 2023-04-15 20:17 | Inpatient (IN) | payer MEDICAID ==
[~2023-04-15] VITALS: Ht 167.6 cm; Wt 142.0 kg
[~2023-04-15 20:17] MED LIST changes: -CITA-144 PO; +ESCI-8 PO; +LITH300C3 PO; -LURA40TA2 PO; +RISP2TAB86 PO
[2023-04-15] MEDS ORDERED: HALOPERIDOL 5 MG TABLET PO PRN (20:30)
[2023-04-15] MEDS ORDERED: LORazepam 2 MG TABLET PO PRN (20:30)
[2023-04-15] MEDS ORDERED: ZOLPIDEM TARTRATE 10 MG TABLET PO PRN (20:30)
[2023-04-15 20:56] VITALS: BP 152/103; PULSE 96; RESP 17; TEMP 98.7; O2SAT 98
[2023-04-15 21:21] LABS: GLUCOMETER DEV NAME(LOC) POC.BV; POC SARS-COV2 AG, FIA NEGATIVE (NEGATIVE)
[2023-04-16 08:15] VITALS: BP 115/71; PULSE 86; RESP 17; TEMP 97.7; O2SAT 97
[2023-04-16 08:20] LABS: HEMOGLOBIN A1C 5.8 % (3.8-5.6)
[2023-04-16 08:22] LABS: BASOPHILS % (AUTO) 0.8 % (0.0-2.0); EOSINOPHILS % (AUTO) 2.6 % (1.0-6.0); HEMOGLOBIN 13.7 g/dL (12.0-16.0); LYMPHOCYTES # (AUTO) 3.8 K/uL (1.0-4.8); LYMPHOCYTES % (AUTO) 22.9 % (22.0-44.0); MEAN CORPUSCULAR HEMOGLOBIN 30.4 pg (26.0-34.0); MEAN CORPUSCULAR HGB CONC 33.3 G/dL (31.0-37.0); MEAN CORPUSCULAR VOLUME 92 fL (80-100); MONOCYTES # (AUTO) 1.1 K/uL (0.1-1.0); MONOCYTES % (AUTO) 6.4 % (2.0-9.0); NEUTROPHILS # (AUTO) 11.2 K/uL (1.8-7.7); NEUTROPHILS % (AUTO) 67.3 % (40.0-70.0); PLATELET COUNT (AUTO) 435 K/uL (150-450); RED BLOOD CELL COUNT(AUTO) 4.48 MIL/uL (4.00-5.20); RED CELL DISTRIBUTION WIDTH 13.1 % (11.5-14.5); WHITE BLOOD COUNT (AUTO) 16.6 K/uL (4.5-11.0)
[2023-04-16 10:46] LABS: ALANINE AMINOTRANSFERASE 34 U/L (12-78); ALBUMIN 3.1 g/dL (3.4-5.0); ALKALINE PHOSPHATASE 88 U/L (46-116); ANION GAP 9 mmol/L (8-16); ASPARTATE AMINOTRANSFERASE 20 U/L (15-37); BILIRUBIN,TOTAL 0.4 mg/dL (0.1-1.0); CARBON DIOXIDE 26 mmol/L (22-29); CHLORIDE 102 mmol/L (98-107); CHOL/HDL RATIO 5.1 (3.9-5.7); CHOLESTEROL 194 mg/dL (131-200); CREATININE 0.91 mg/dL (0.60-1.30); GLOMERULAR FILTR. RATE CALC > 60 mL/min (>60); GLUCOSE,RANDOM 98 mg/dL (70-110); HDL CHOLESTEROL 38 mg/dL (40-60); LDL CHOL (CALC.) 123 mg/dL (0-130); POTASSIUM 3.4 mmol/L (3.5-5.1); SODIUM SERUM 137 mmol/L (136-145); THYROID STIMULATING HORMONE 2.92 uIU/mL (0.36-3.74); TOTAL PROTEIN, SERUM 7.7 g/dL (6.4-8.2); TRIGLYCERIDES 165 mg/dL (15-150); UREA NITROGEN, BLOOD 10 mg/dL (7-18)
[2023-04-16] MEDS: RisperiDONE 2 MG TABLET PO SCH ×2 (10:59→16:33)
[2023-04-16] MEDS ORDERED: POTASSIUM CHLORIDE 10 MEQ ER TABLET PO ONE (11:15)
[2023-04-16] MEDS ORDERED: LOPERAMIDE HCL 2 MG CAPSULE PO PRN (14:30)
[2023-04-16] MEDS ORDERED: IBUPROFEN 400 MG TABLET PO PRN (14:30)
[2023-04-16] MEDS ORDERED: GuaiFENesin/D-METHORPHAN [SUGAR-FREE] 200-20MG/10 ML SYRUP UDCUP PO PRN (14:30)
[2023-04-16] MEDS ORDERED: PETROLATUM,WHITE 28 GM JELLY TP PRN (14:30)
[2023-04-16] MEDS ORDERED: MAG HYDROX/ALUMINUM HYD/SIMETH ES 30 ML SUSPENSION UDCUP PO PRN (14:30)
[2023-04-16] MEDS ORDERED: DOCUSATE SODIUM 100 MG CAPSULE PO PRN (14:30)
[2023-04-16] MEDS ORDERED: CloNIDine HCL 0.1 MG TABLET PO PRN (14:30)
[2023-04-16] MEDS ORDERED: ONDANSETRON HCL 4 MG TABLET PO PRN (14:30)
[2023-04-16] MEDS ORDERED: ACETAMINOPHEN 325 MG TABLET PO PRN (14:30)
[2023-04-16] MEDS ORDERED: ALBUTEROL SULFATE HFA 90 MCG/PUFF 8 GM INHALER IH PRN (14:30)
[2023-04-16] MEDS ORDERED: MAGNESIUM HYDROXIDE SUSPENSION 30 ML UDCUP PO PRN (14:30)
[2023-04-16] MEDS ORDERED: NICOTINE 14 MG/24 HOUR PATCH TD PRN (14:30)
[2023-04-16] MEDS: LITHIUM CARBONATE 300 MG TABLET PO SCH (16:32)
[2023-04-16 17:02] VITALS: BP 120/77; PULSE 84; RESP 18; TEMP 97.8; O2SAT 98
[2023-04-16 20:23] VITALS: BP 123/80; PULSE 86; RESP 18; TEMP 97.4; O2SAT 98
[2023-04-17] MEDS: LITHIUM CARBONATE 300 MG TABLET PO SCH ×2 (06:31→16:21)
[2023-04-17 08:00] VITALS: BP 107/62; PULSE 94; RESP 18; TEMP 98.2; O2SAT 97
[2023-04-17] MEDS: ESCITALOPRAM OXALATE 10 MG TABLET PO SCH (08:12)
[2023-04-17] MEDS: RisperiDONE 2 MG TABLET PO SCH ×2 (08:12→16:21)
[2023-04-17 08:16] LABS: CHOL/HDL RATIO 5.6 (3.9-5.7); POTASSIUM 3.9 mmol/L (3.5-5.1); THYROID STIMULATING HORMONE 1.41 uIU/mL (0.36-3.74)
[2023-04-17 08:21] LABS: HEMOGLOBIN A1C 5.8 % (3.8-5.6)
[2023-04-17 20:08] VITALS: BP 138/82; PULSE 96; RESP 18; TEMP 96.7; O2SAT 97
[2023-04-18] MEDS: LITHIUM CARBONATE 300 MG TABLET PO SCH (06:06)
[2023-04-18 08:11] VITALS: BP 130/77; PULSE 98; RESP 18; TEMP 97.6; O2SAT 97
[2023-04-18] MEDS: RisperiDONE 2 MG TABLET PO SCH (08:13)
[2023-04-18] MEDS: ESCITALOPRAM OXALATE 10 MG TABLET PO SCH (08:13)
[2023-04-18] MEDS ORDERED: ESCI-8 PO (09:32)
[2023-04-18] MEDS ORDERED: LITH300T PO (09:34)
== END 2023-04-18 11:40 | disposition home or self-care (01) | DRG 750 ==
LOC: B3A 21:34
PROVIDERS: ADMIT Psychiatry & Neurology Psychiatry; ATTEND Psychiatry & Neurology Child & Adolescent Psychiatry
DX: F25.0 Schizoaffective disorder, bipolar type (principal); R45.851 Suicidal ideations; F32.A Depression, unspecified; Z20.822 Contact with and (suspected) exposure to COVID-19; I10 Essential (primary) hypertension; J45.909 Unspecified asthma, uncomplicated; Z88.8 Allergy status to other drugs, medicaments and biological substances
CPT/HCPCS: 80053; 80061; 83036; 84132; 84439; 84443; 85025; 87081

== ENCOUNTER 2023-04-22 10:59 | Inpatient (IN) | payer MEDICAID ==
[~2023-04-22] VITALS: Ht 167.6 cm; Wt 142.9 kg
[~2023-04-22 10:59] MED LIST changes: -LITH300C3 PO; +LITH300T PO
[2023-04-22 12:11] LABS: BASOPHILS % (AUTO) 0.7 % (0.0-2.0); EOSINOPHILS % (AUTO) 1.8 % (1.0-6.0); HEMATOCRIT 40.1 % (36-46); HEMOGLOBIN 13.8 g/dL (12.0-16.0); LYMPHOCYTES # (AUTO) 4.3 K/uL (1.0-4.8); LYMPHOCYTES % (AUTO) 25.2 % (22.0-44.0); MEAN CORPUSCULAR HEMOGLOBIN 31.4 pg (26.0-34.0); MEAN CORPUSCULAR HGB CONC 34.4 G/dL (31.0-37.0); MEAN CORPUSCULAR VOLUME 91 fL (80-100); MONOCYTES # (AUTO) 0.9 K/uL (0.1-1.0); MONOCYTES % (AUTO) 5.4 % (2.0-9.0); NEUTROPHILS # (AUTO) 11.5 K/uL (1.8-7.7); NEUTROPHILS % (AUTO) 66.9 % (40.0-70.0); PLATELET COUNT (AUTO) 449 K/uL (150-450); RED CELL DISTRIBUTION WIDTH 13.3 % (11.5-14.5); WHITE BLOOD COUNT (AUTO) 17.2 K/uL (4.5-11.0)
[2023-04-22 12:33] LABS: ANION GAP 9 mmol/L (8-16); CALCIUM, TOTAL 9.2 mg/dL (8.8-10.5); CARBON DIOXIDE 27 mmol/L (22-29); CHLORIDE 103 mmol/L (98-107); CREATININE 0.93 mg/dL (0.60-1.30); GLOMERULAR FILTR. RATE CALC > 60 mL/min (>60); GLUCOSE,RANDOM 102 mg/dL (70-110); POTASSIUM 3.5 mmol/L (3.5-5.1); SODIUM SERUM 139 mmol/L (136-145); UREA NITROGEN, BLOOD 14 mg/dL (7-18)
[2023-04-22 12:34] LABS: ALCOHOL, BLOOD (SERUM) < 3 mg/dL (0-10)
[2023-04-22 12:36] LABS: ALANINE AMINOTRANSFERASE 32 U/L (12-78); ALBUMIN 3.3 g/dL (3.4-5.0); ALKALINE PHOSPHATASE 86 U/L (46-116); ASPARTATE AMINOTRANSFERASE 18 U/L (15-37); BILIRUBIN,TOTAL 0.1 mg/dL (0.1-1.0); TOTAL PROTEIN, SERUM 8.2 g/dL (6.4-8.2)
[2023-04-22] MEDS ORDERED: LORazepam 2 MG/ML VIAL IM ONE (12:45)
[2023-04-22] MEDS ORDERED: DiphenhydrAMINE HCL 50 MG/ML VIAL IM ONE (12:45)
[2023-04-22] MEDS ORDERED: HALOPERIDOL LACTATE 5 MG/ML VIAL IM ONE (12:45)
[2023-04-22 14:23] LABS: COVID AG,FIA SOURCE NASAL SWAB
[2023-04-22 14:51] LABS: SARS-COV2 (COVID) ANTIGEN,FIA Negative (Negative)
[2023-04-22 17:36] VITALS: BP 120/73; PULSE 85; RESP 18; TEMP 97.8
[2023-04-22 19:16] VITALS: BP 122/73; PULSE 85; RESP 18; TEMP 97.8; O2SAT 95
[2023-04-22 20:00] VITALS: BP 130/76; PULSE 90; RESP 18; TEMP 97.6; O2SAT 96
[2023-04-22] MEDS ORDERED: PNEUMOCOCCAL VACCINE POLYVALENT 0.5 ML SYRINGE [PPSV23] IM. ONE (20:15)
[2023-04-23 08:49] VITALS: BP 133/64; PULSE 81; RESP 17; TEMP 97; O2SAT 98
[2023-04-23] MEDS ORDERED: ONDANSETRON HCL 4 MG TABLET PO PRN (10:30)
[2023-04-23] MEDS ORDERED: GuaiFENesin/D-METHORPHAN [SUGAR-FREE] 200-20MG/10 ML SYRUP UDCUP PO PRN (10:30)
[2023-04-23] MEDS ORDERED: LOPERAMIDE HCL 2 MG CAPSULE PO PRN (10:30)
[2023-04-23] MEDS ORDERED: DOCUSATE SODIUM 100 MG CAPSULE PO PRN (10:30)
[2023-04-23] MEDS ORDERED: CloNIDine HCL 0.1 MG TABLET PO PRN (10:30)
[2023-04-23] MEDS ORDERED: MAGNESIUM HYDROXIDE SUSPENSION 30 ML UDCUP PO PRN (10:30)
[2023-04-23] MEDS ORDERED: ALBUTEROL SULFATE HFA 90 MCG/PUFF 8 GM INHALER IH PRN (10:30)
[2023-04-23] MEDS ORDERED: PETROLATUM,WHITE 28 GM JELLY TP PRN (10:30)
[2023-04-23] MEDS ORDERED: ACETAMINOPHEN 325 MG TABLET PO PRN (10:30)
[2023-04-23] MEDS ORDERED: MAG HYDROX/ALUMINUM HYD/SIMETH ES 30 ML SUSPENSION UDCUP PO PRN (10:30)
[2023-04-23] MEDS ORDERED: IBUPROFEN 400 MG TABLET PO PRN (10:30)
[2023-04-23] MEDS: ESCITALOPRAM OXALATE 10 MG TABLET PO SCH (11:33)
[2023-04-23] MEDS: RisperiDONE 2 MG TABLET PO SCH (11:33)
[2023-04-23] MEDS: LITHIUM CARBONATE 300 MG CAPSULE PO SCH (16:42)
[2023-04-23 20:39] VITALS: BP 109/63; PULSE 86; RESP 17; TEMP 97.7; O2SAT 96
[2023-04-24 08:12] LABS: BASOPHILS % (AUTO) 0.8 % (0.0-2.0); EOSINOPHILS % (AUTO) 3.2 % (1.0-6.0); HEMATOCRIT 41.3 % (36-46); HEMOGLOBIN 13.8 g/dL (12.0-16.0); LYMPHOCYTES # (AUTO) 3.7 K/uL (1.0-4.8); LYMPHOCYTES % (AUTO) 22.1 % (22.0-44.0); MEAN CORPUSCULAR HEMOGLOBIN 30.6 pg (26.0-34.0); MEAN CORPUSCULAR HGB CONC 33.5 G/dL (31.0-37.0); MEAN CORPUSCULAR VOLUME 91 fL (80-100); MONOCYTES # (AUTO) 0.8 K/uL (0.1-1.0); NEUTROPHILS # (AUTO) 11.6 K/uL (1.8-7.7); NEUTROPHILS % (AUTO) 68.9 % (40.0-70.0); PLATELET COUNT (AUTO) 463 K/uL (150-450); RED BLOOD CELL COUNT(AUTO) 4.52 MIL/uL (4.00-5.20); RED CELL DISTRIBUTION WIDTH 13.1 % (11.5-14.5); WHITE BLOOD COUNT (AUTO) 16.8 K/uL (4.5-11.0)
[2023-04-24 08:40] LABS: APPEARANCE,URINE CLEAR (CLEAR); BILIRUBIN,URINE NEGATIVE (NEGATIVE); COLOR,URINE LIGHT YELLOW (YELLOW); GLUCOSE, URINE (UA) NEGATIVE (NEGATIVE); KETONES,URINE NEGATIVE (NEGATIVE); LEUKOCYTE ESTERASE ,URINE NEGATIVE (NEGATIVE); NITRATE,URINE NEGATIVE (NEGATIVE); OCCULT BLOOD,URINE NEGATIVE (NEGATIVE); PH,URINE 5.5 (5.0-8.0); PH,URINE DRUG SCREEN 5.5 (5.0-8.0); PROTEIN,URINE NEGATIVE (NEGATIVE); SPECIFIC GRAVITIY, URINE 1.013 (1.003-1.030); UROBILINOGEN,URINE <=1.0 mg/dL (<=1.0)
[2023-04-24 08:42] LABS: THYROID STIMULATING HORMONE 2.17 uIU/mL (0.36-3.74)
[2023-04-24] MEDS: LITHIUM CARBONATE 300 MG CAPSULE PO SCH ×2 (08:43→16:24)
[2023-04-24] MEDS: ESCITALOPRAM OXALATE 10 MG TABLET PO SCH (08:43)
[2023-04-24] MEDS: RisperiDONE 2 MG TABLET PO SCH (08:44)
[2023-04-24 08:48] LABS: ALCOHOL, URINE DRUG SCREEN NEGATIVE (NEGATIVE); AMPHET/METH SCREEN,URINE NEGATIVE (NEGATIVE); BARBITURATE SCREEN, URINE NEGATIVE (NEGATIVE); BENZODIAZEPINES SCREEN,URINE NEGATIVE (NEGATIVE); CANNABINOID SCREEN,URINE POSITIVE (NEGATIVE); COCAINE SCREEN,URINE NEGATIVE (NEGATIVE); METHADONE SCREEN, URINE NEGATIVE (NEGATIVE); OPIATE SCREEN,URINE NEGATIVE (NEGATIVE); PHENCYCLIDINE SCREEN,URINE NEGATIVE (NEGATIVE)
[2023-04-24 08:49] LABS: HEMOGLOBIN A1C 5.8 % (3.8-5.6)
[2023-04-24 09:21] VITALS: BP 127/74; PULSE 74; RESP 17; TEMP 97.5; O2SAT 96
[2023-04-24 20:23] VITALS: BP 127/76; PULSE 80; RESP 19; TEMP 97.5; O2SAT 98
[2023-04-24] MEDS: LORazepam 2 MG TABLET PO PRN (21:17)
[2023-04-24] MEDS: HALOPERIDOL 5 MG TABLET PO PRN (21:17)
[2023-04-25 08:24] VITALS: RESP 18
[2023-04-25] MEDS: LITHIUM CARBONATE 300 MG CAPSULE PO SCH ×2 (08:54→16:53)
[2023-04-25] MEDS: ESCITALOPRAM OXALATE 10 MG TABLET PO SCH (08:54)
[2023-04-25] MEDS: RisperiDONE 2 MG TABLET PO SCH (08:54)
[2023-04-25] MEDS: LORazepam 2 MG TABLET PO PRN (18:25)
[2023-04-25] MEDS: NICOTINE 14 MG/24 HOUR PATCH TD PRN (22:13)
[2023-04-25 22:41] VITALS: RESP 18; TEMP 98
[2023-04-26 08:27] VITALS: RESP 18
[2023-04-26 08:36] LABS: BASOPHILS % (AUTO) 0.8 % (0.0-2.0); EOSINOPHILS % (AUTO) 2.1 % (1.0-6.0); HEMATOCRIT 42.7 % (36-46); HEMOGLOBIN 14.5 g/dL (12.0-16.0); LYMPHOCYTES # (AUTO) 3.2 K/uL (1.0-4.8); LYMPHOCYTES % (AUTO) 20.2 % (22.0-44.0); MEAN CORPUSCULAR HEMOGLOBIN 30.9 pg (26.0-34.0); MEAN CORPUSCULAR HGB CONC 33.9 G/dL (31.0-37.0); MEAN CORPUSCULAR VOLUME 91 fL (80-100); MONOCYTES # (AUTO) 0.7 K/uL (0.1-1.0); MONOCYTES % (AUTO) 4.4 % (2.0-9.0); NEUTROPHILS # (AUTO) 11.6 K/uL (1.8-7.7); NEUTROPHILS % (AUTO) 72.5 % (40.0-70.0); PLATELET COUNT (AUTO) 471 K/uL (150-450); RED BLOOD CELL COUNT(AUTO) 4.68 MIL/uL (4.00-5.20); RED CELL DISTRIBUTION WIDTH 13.4 % (11.5-14.5)
[2023-04-26] MEDS: LITHIUM CARBONATE 300 MG CAPSULE PO SCH ×2 (08:37→16:29)
[2023-04-26] MEDS: ESCITALOPRAM OXALATE 10 MG TABLET PO SCH (08:37)
[2023-04-26] MEDS: RisperiDONE 2 MG TABLET PO SCH (08:37)
[2023-04-26] MEDS: LORazepam 2 MG TABLET PO PRN (08:37)
[2023-04-26 08:55] LABS: LITHIUM < 0.20 mmol/L (0.60-1.20)
[2023-04-26 08:57] LABS: CHOL/HDL RATIO 5.1 (3.9-5.7); CHOLESTEROL 205 mg/dL (131-200); HDL CHOLESTEROL 40 mg/dL (40-60); LDL CHOL (CALC.) 127 mg/dL (0-130); TRIGLYCERIDES 189 mg/dL (15-150)
[2023-04-26] MEDS: NICOTINE 14 MG/24 HOUR PATCH TD PRN (15:40)
[2023-04-26 23:39] VITALS: BP 135/86; PULSE 90; RESP 18; TEMP 97.8
[2023-04-26] MEDS: ZOLPIDEM TARTRATE 10 MG TABLET PO PRN (23:48)
[2023-04-27 08:40] VITALS: BP 146/93; PULSE 94; RESP 18; TEMP 97.8; O2SAT 97
[2023-04-27] MEDS: RisperiDONE 2 MG TABLET PO SCH (08:43)
[2023-04-27] MEDS: ESCITALOPRAM OXALATE 10 MG TABLET PO SCH (08:44)
[2023-04-27] MEDS: LITHIUM CARBONATE 300 MG CAPSULE PO SCH ×2 (08:44→17:25)
[2023-04-27] MEDS: LORazepam 2 MG TABLET PO PRN (10:55)
[2023-04-27] MEDS: HALOPERIDOL 5 MG TABLET PO PRN (10:55)
[2023-04-27 20:57] VITALS: BP 124/77; PULSE 85; RESP 18; TEMP 98; O2SAT 99
[2023-04-27] MEDS: ZOLPIDEM TARTRATE 10 MG TABLET PO PRN (21:11)
[2023-04-28 08:20] LABS: BASOPHILS % (AUTO) 0.8 % (0.0-2.0); HEMATOCRIT 42.3 % (36-46); HEMOGLOBIN 14.4 g/dL (12.0-16.0); LYMPHOCYTES # (AUTO) 4.9 K/uL (1.0-4.8); LYMPHOCYTES % (AUTO) 29.1 % (22.0-44.0); MEAN CORPUSCULAR HEMOGLOBIN 31.1 pg (26.0-34.0); MEAN CORPUSCULAR VOLUME 92 fL (80-100); MONOCYTES # (AUTO) 0.7 K/uL (0.1-1.0); MONOCYTES % (AUTO) 4.4 % (2.0-9.0); NEUTROPHILS # (AUTO) 10.5 K/uL (1.8-7.7); NEUTROPHILS % (AUTO) 62.7 % (40.0-70.0); PLATELET COUNT (AUTO) 467 K/uL (150-450); RED BLOOD CELL COUNT(AUTO) 4.62 MIL/uL (4.00-5.20); RED CELL DISTRIBUTION WIDTH 13.6 % (11.5-14.5); WHITE BLOOD COUNT (AUTO) 16.8 K/uL (4.5-11.0)
[2023-04-28] MEDS: NICOTINE 14 MG/24 HOUR PATCH TD PRN (08:38)
[2023-04-28] MEDS: RisperiDONE 2 MG TABLET PO SCH (08:40)
[2023-04-28] MEDS: ESCITALOPRAM OXALATE 10 MG TABLET PO SCH (08:40)
[2023-04-28] MEDS: LITHIUM CARBONATE 300 MG CAPSULE PO SCH ×2 (08:40→16:09)
[2023-04-28 08:59] VITALS: BP 120/73; PULSE 100; RESP 17; TEMP 98.2; O2SAT 97
[2023-04-28] MEDS ORDERED: INFLUENZA VIRUS VACCINE QVS 2023-24 (6MO+)/PF 60 MCG/0.5 ML SYRINGE IM. ONE (14:00)
[2023-04-28] MEDS ORDERED: PNEUMOCOCCAL VACCINE POLYVALENT 0.5 ML SYRINGE [PPSV23] IM. ONE (14:00)
[2023-04-28] MEDS: ZOLPIDEM TARTRATE 10 MG TABLET PO PRN (21:13)
[2023-04-28 22:06] VITALS: BP 136/83; PULSE 72; RESP 18; TEMP 97; O2SAT 98
[2023-04-29 08:00] LABS: BASOPHILS % (AUTO) 1.2 % (0.0-2.0); EOSINOPHILS % (AUTO) 3.2 % (1.0-6.0); HEMATOCRIT 41.2 % (36-46); HEMOGLOBIN 13.9 g/dL (12.0-16.0); LYMPHOCYTES # (AUTO) 3.9 K/uL (1.0-4.8); LYMPHOCYTES % (AUTO) 26.2 % (22.0-44.0); MEAN CORPUSCULAR HEMOGLOBIN 30.7 pg (26.0-34.0); MEAN CORPUSCULAR HGB CONC 33.7 G/dL (31.0-37.0); MEAN CORPUSCULAR VOLUME 91 fL (80-100); MONOCYTES # (AUTO) 0.7 K/uL (0.1-1.0); MONOCYTES % (AUTO) 4.9 % (2.0-9.0); NEUTROPHILS # (AUTO) 9.5 K/uL (1.8-7.7); NEUTROPHILS % (AUTO) 64.5 % (40.0-70.0); PLATELET COUNT (AUTO) 396 K/uL (150-450); RED BLOOD CELL COUNT(AUTO) 4.52 MIL/uL (4.00-5.20); RED CELL DISTRIBUTION WIDTH 13.5 % (11.5-14.5); WHITE BLOOD COUNT (AUTO) 14.8 K/uL (4.5-11.0)
[2023-04-29 08:16] VITALS: BP 118/70; PULSE 78; RESP 18; TEMP 97.7; O2SAT 95
[2023-04-29] MEDS: RisperiDONE 2 MG TABLET PO SCH (08:26)
[2023-04-29] MEDS: ESCITALOPRAM OXALATE 10 MG TABLET PO SCH (08:26)
[2023-04-29] MEDS: LITHIUM CARBONATE 300 MG CAPSULE PO SCH ×2 (08:26→16:18)
[2023-04-29] MEDS: LORazepam 2 MG TABLET PO PRN (20:02)
[2023-04-29] MEDS: ZOLPIDEM TARTRATE 10 MG TABLET PO PRN (20:02)
[2023-04-29 20:35] VITALS: BP 124/88; PULSE 89; RESP 18; TEMP 98.1; O2SAT 96
[2023-04-30 07:29] LABS: BASOPHILS % (AUTO) 0.8 % (0.0-2.0); EOSINOPHILS % (AUTO) 2.5 % (1.0-6.0); HEMATOCRIT 41.6 % (36-46); HEMOGLOBIN 14.1 g/dL (12.0-16.0); LYMPHOCYTES # (AUTO) 4.2 K/uL (1.0-4.8); LYMPHOCYTES % (AUTO) 27.7 % (22.0-44.0); MEAN CORPUSCULAR HEMOGLOBIN 30.8 pg (26.0-34.0); MEAN CORPUSCULAR HGB CONC 33.8 G/dL (31.0-37.0); MEAN CORPUSCULAR VOLUME 91 fL (80-100); MONOCYTES # (AUTO) 0.8 K/uL (0.1-1.0); NEUTROPHILS # (AUTO) 9.6 K/uL (1.8-7.7); PLATELET COUNT (AUTO) 442 K/uL (150-450); RED BLOOD CELL COUNT(AUTO) 4.57 MIL/uL (4.00-5.20); RED CELL DISTRIBUTION WIDTH 13.4 % (11.5-14.5)
[2023-04-30 08:10] VITALS: BP 116/65; PULSE 87; RESP 18; TEMP 97.8; O2SAT 97
[2023-04-30] MEDS: ESCITALOPRAM OXALATE 10 MG TABLET PO SCH (08:29)
[2023-04-30] MEDS: RisperiDONE 2 MG TABLET PO SCH (08:29)
[2023-04-30] MEDS: LITHIUM CARBONATE 300 MG CAPSULE PO SCH ×2 (08:29→16:05)
[2023-04-30 20:00] VITALS: BP 107/67; PULSE 84; RESP 18; TEMP 97.4; O2SAT 97
[2023-05-01] MEDS: ESCITALOPRAM OXALATE 10 MG TABLET PO SCH (08:01)
[2023-05-01] MEDS: LITHIUM CARBONATE 300 MG CAPSULE PO SCH ×2 (08:02→16:09)
[2023-05-01] MEDS: RisperiDONE 2 MG TABLET PO SCH (08:02)
[2023-05-01 08:13] VITALS: BP 132/81; PULSE 69; RESP 16; TEMP 98.2; O2SAT 97
[2023-05-02 00:30] VITALS: RESP 18; TEMP 97.8
[2023-05-02 08:18] VITALS: BP 118/73; PULSE 83; RESP 18; TEMP 98.9; O2SAT 97
[2023-05-02] MEDS: LITHIUM CARBONATE 300 MG CAPSULE PO SCH ×2 (08:46→16:06)
[2023-05-02] MEDS: RisperiDONE 2 MG TABLET PO SCH (08:46)
[2023-05-02] MEDS: ESCITALOPRAM OXALATE 10 MG TABLET PO SCH (08:46)
[2023-05-02 20:03] VITALS: BP 129/67; PULSE 62; RESP 18; TEMP 97.6; O2SAT 98
[2023-05-03 08:03] LABS: BASOPHILS % (AUTO) 0.8 % (0.0-2.0); EOSINOPHILS % (AUTO) 2.3 % (1.0-6.0); HEMATOCRIT 40.7 % (36-46); HEMOGLOBIN 13.6 g/dL (12.0-16.0); LYMPHOCYTES # (AUTO) 4.1 K/uL (1.0-4.8); LYMPHOCYTES % (AUTO) 23.9 % (22.0-44.0); MEAN CORPUSCULAR HEMOGLOBIN 30.5 pg (26.0-34.0); MEAN CORPUSCULAR HGB CONC 33.5 G/dL (31.0-37.0); MEAN CORPUSCULAR VOLUME 91 fL (80-100); MONOCYTES # (AUTO) 0.7 K/uL (0.1-1.0); MONOCYTES % (AUTO) 4.2 % (2.0-9.0); NEUTROPHILS # (AUTO) 11.8 K/uL (1.8-7.7); NEUTROPHILS % (AUTO) 68.8 % (40.0-70.0); PLATELET COUNT (AUTO) 437 K/uL (150-450); RED BLOOD CELL COUNT(AUTO) 4.47 MIL/uL (4.00-5.20); RED CELL DISTRIBUTION WIDTH 13.2 % (11.5-14.5); WHITE BLOOD COUNT (AUTO) 17.2 K/uL (4.5-11.0)
[2023-05-03] MEDS: RisperiDONE 2 MG TABLET PO SCH (08:08)
[2023-05-03] MEDS: LITHIUM CARBONATE 300 MG CAPSULE PO SCH ×2 (08:08→16:10)
[2023-05-03] MEDS: ESCITALOPRAM OXALATE 10 MG TABLET PO SCH (08:08)
[2023-05-03 08:32] VITALS: BP 133/78; PULSE 71; RESP 19; TEMP 97.9; O2SAT 96
[2023-05-03 11:28] LABS: APPEARANCE,URINE CLEAR (CLEAR); BILIRUBIN,URINE NEGATIVE (NEGATIVE); COLOR,URINE LIGHT YELLOW (YELLOW); GLUCOSE, URINE (UA) NEGATIVE (NEGATIVE); KETONES,URINE NEGATIVE (NEGATIVE); LEUKOCYTE ESTERASE ,URINE NEGATIVE (NEGATIVE); NITRATE,URINE NEGATIVE (NEGATIVE); OCCULT BLOOD,URINE NEGATIVE (NEGATIVE); PROTEIN,URINE NEGATIVE (NEGATIVE); SPECIFIC GRAVITIY, URINE 1.019 (1.003-1.030); UROBILINOGEN,URINE <=1.0 mg/dL (<=1.0)
[2023-05-03 11:54] LABS: BACTERIA,URINE None Seen /HPF (None Seen); RBC,URINE None Seen /HPF (0-2); SQUAMOUS EPITHELIAL CELL,UR Few /LPF (None Seen); WBC,URINE 0-2 /HPF (0-5)
[2023-05-03 20:45] VITALS: BP 121/75; PULSE 78; RESP 18; TEMP 98.4; O2SAT 97
[2023-05-03 20:46] LABS: GLUCOMETER DEV NAME(LOC) POC.BV; POC SARS-COV2 AG, FIA NEGATIVE (NEGATIVE)
[2023-05-04 08:21] LABS: BASOPHILS % (AUTO) 0.8 % (0.0-2.0); EOSINOPHILS % (AUTO) 2.3 % (1.0-6.0); HEMATOCRIT 40.8 % (36-46); HEMOGLOBIN 13.9 g/dL (12.0-16.0); LYMPHOCYTES # (AUTO) 4.4 K/uL (1.0-4.8); LYMPHOCYTES % (AUTO) 27.7 % (22.0-44.0); MEAN CORPUSCULAR HEMOGLOBIN 31.2 pg (26.0-34.0); MEAN CORPUSCULAR HGB CONC 34.1 G/dL (31.0-37.0); MEAN CORPUSCULAR VOLUME 91 fL (80-100); MONOCYTES # (AUTO) 0.8 K/uL (0.1-1.0); MONOCYTES % (AUTO) 4.9 % (2.0-9.0); NEUTROPHILS # (AUTO) 10.3 K/uL (1.8-7.7); NEUTROPHILS % (AUTO) 64.3 % (40.0-70.0); PLATELET COUNT (AUTO) 442 K/uL (150-450); RED BLOOD CELL COUNT(AUTO) 4.46 MIL/uL (4.00-5.20); RED CELL DISTRIBUTION WIDTH 13.5 % (11.5-14.5)
[2023-05-04 08:23] VITALS: BP 112/77; PULSE 76; RESP 18; TEMP 98.2; O2SAT 95
[2023-05-04] MEDS: LITHIUM CARBONATE 300 MG CAPSULE PO SCH ×2 (08:31→16:51)
[2023-05-04] MEDS: ESCITALOPRAM OXALATE 10 MG TABLET PO SCH (08:32)
[2023-05-04] MEDS: RisperiDONE 2 MG TABLET PO SCH (08:32)
[2023-05-04 20:49] VITALS: BP 119/75; PULSE 71; RESP 18; TEMP 97.8; O2SAT 97
[2023-05-05 08:39] VITALS: BP 128/92; PULSE 86; RESP 18; TEMP 97.6; O2SAT 98
[2023-05-05] MEDS: LITHIUM CARBONATE 300 MG CAPSULE PO SCH ×2 (09:11→16:36)
[2023-05-05] MEDS: ESCITALOPRAM OXALATE 10 MG TABLET PO SCH (09:11)
[2023-05-05] MEDS: RisperiDONE 2 MG TABLET PO SCH (09:12)
[2023-05-05] MEDS ORDERED: ESCI-8 PO (12:16)
[2023-05-05] MEDS ORDERED: LITH300C3 PO (12:16)
[2023-05-05] MEDS ORDERED: RISP2TAB86 PO (12:16)
[2023-05-06 05:17] VITALS: RESP 18
== END 2023-05-06 07:29 | disposition home or self-care (01) | DRG 750 ==
LOC: EMS 11:26 → B3A 14:37
PROVIDERS: ADMIT Psychiatry & Neurology Child & Adolescent Psychiatry; ATTEND Psychiatry & Neurology Child & Adolescent Psychiatry
PROC: GZHZZZZ Group Psychotherapy (ICD-10-PCS; principal; 2023-04-29)
DX: F25.0 Schizoaffective disorder, bipolar type (principal); D72.829 Elevated white blood cell count, unspecified; I10 Essential (primary) hypertension; R73.03 Prediabetes; F17.210 Nicotine dependence, cigarettes, uncomplicated; Z20.822 Contact with and (suspected) exposure to COVID-19; F32.A Depression, unspecified; F41.9 Anxiety disorder, unspecified; F12.10 Cannabis abuse, uncomplicated; F25.1 Schizoaffective disorder, depressive type; Z79.899 Other long term (current) drug therapy
CPT/HCPCS: 80053; 80061; 80178; 80307; 81001; 81003; 83036; 84443; 84703; 85025; 87081; 90686; 90732; 99291; G0480; J1200; J1630; J2060

== ENCOUNTER 2024-07-03 16:14 | Emergency (ER) | payer SELFPAY ==
[~2024-07-03] VITALS: Ht 165.1 cm; Wt 151.4 kg
[~2024-07-03 16:14] MED LIST changes: +CEPH-558 PO; +LITH300C3 PO; -LITH300T PO; +RISP-32 PO; -RISP2TAB86 PO
[2024-07-03 16:42] VITALS: BP 127/79; PULSE 108; RESP 16; TEMP 98; O2SAT 100
[2024-07-03 18:17] LABS: EOSINOPHILS % (AUTO) 2.4 % (1.0-6.0); HEMATOCRIT 43.8 % (36-46); HEMOGLOBIN 14.5 g/dL (12.0-16.0); LYMPHOCYTES # (AUTO) 3.4 K/uL (1.0-4.8); LYMPHOCYTES % (AUTO) 19.6 % (22.0-44.0); MEAN CORPUSCULAR HEMOGLOBIN 30.2 pg (26.0-34.0); MEAN CORPUSCULAR VOLUME 92 fL (80-100); MONOCYTES # (AUTO) 0.7 K/uL (0.1-1.0); MONOCYTES % (AUTO) 4.2 % (2.0-9.0); NEUTROPHILS # (AUTO) 12.6 K/uL (1.8-7.7); NEUTROPHILS % (AUTO) 72.8 % (40.0-70.0); PLATELET COUNT (AUTO) 430 K/uL (150-450); RED BLOOD CELL COUNT(AUTO) 4.78 MIL/uL (4.00-5.20); RED CELL DISTRIBUTION WIDTH 13.3 % (11.5-14.5); WHITE BLOOD COUNT (AUTO) 17.2 K/uL (4.5-11.0)
[2024-07-03 18:20] LABS: ANION GAP 6 mmol/L (8-16); CALCIUM, TOTAL 9.1 mg/dL (8.8-10.5); CARBON DIOXIDE 30 mmol/L (22-29); CHLORIDE 98 mmol/L (98-107); CREATININE 1.04 mg/dL (0.60-1.30); GLOMERULAR FILTR. RATE CALC > 60 mL/min (>60); GLUCOSE,RANDOM 215 mg/dL (70-110); POTASSIUM 3.5 mmol/L (3.5-5.1); SODIUM SERUM 134 mmol/L (136-145); UREA NITROGEN, BLOOD 15 mg/dL (7-18)
[2024-07-03 18:25] LABS: ACETAMINOPHEN < 2 mcg/mL (10-30)
[2024-07-03 18:34] LABS: COVID AG,FIA SOURCE NASAL SWAB
[2024-07-03 18:38] LABS: ALCOHOL, BLOOD (SERUM) < 3 mg/dL (0-10)
[2024-07-03 18:48] LABS: SALICYLATE < 2.8 mg/dL (2.8-20.0)
[2024-07-03 19:00] LABS: SARS-COV2 (COVID) ANTIGEN,FIA Negative (Negative)
[2024-07-03 19:37] LABS: APPEARANCE,URINE CLEAR (CLEAR); BILIRUBIN,URINE NEGATIVE (NEGATIVE); COLOR,URINE YELLOW (YELLOW); GLUCOSE, URINE (UA) TRACE mg/dL (NEGATIVE); KETONES,URINE TRACE mg/dL (NEGATIVE); LEUKOCYTE ESTERASE ,URINE NEGATIVE (NEGATIVE); NITRATE,URINE NEGATIVE (NEGATIVE); OCCULT BLOOD,URINE NEGATIVE (NEGATIVE); PH,URINE 5.5 (5.0-8.0); PROTEIN,URINE TRACE mg/dL (NEGATIVE); SPECIFIC GRAVITIY, URINE 1.026 (1.003-1.030); UROBILINOGEN,URINE <=1.0 mg/dL (<=1.0)
[2024-07-03 19:39] LABS: PH,URINE DRUG SCREEN 5.5 (5.0-8.0)
[2024-07-03 19:43] LABS: ALCOHOL, URINE DRUG SCREEN NEGATIVE (NEGATIVE); AMPHET/METH SCREEN,URINE NEGATIVE (NEGATIVE); BARBITURATE SCREEN, URINE NEGATIVE (NEGATIVE); BENZODIAZEPINES SCREEN,URINE NEGATIVE (NEGATIVE); CANNABINOID SCREEN,URINE NEGATIVE (NEGATIVE); COCAINE SCREEN,URINE NEGATIVE (NEGATIVE); METHADONE SCREEN, URINE NEGATIVE (NEGATIVE); OPIATE SCREEN,URINE NEGATIVE (NEGATIVE); PHENCYCLIDINE SCREEN,URINE NEGATIVE (NEGATIVE)
[2024-07-03] MEDS: CEPHALEXIN MONOHYDRATE 500 MG CAPSULE PO ONE (19:58)
[2024-07-03] MEDS: INSULIN REGULAR, HUMAN 100 UNITS/ML SQ ONE (19:58)
[2024-07-03] MEDS: ACETAMINOPHEN 500 MG TABLET PO ONE (19:58)
[2024-07-03 20:03] LABS: BACTERIA,URINE None Seen /HPF (None Seen); RBC,URINE 0-2 /HPF (0-2); WBC,URINE 0-2 /HPF (0-5); YEAST,URINE Rare /HPF (None Seen)
[2024-07-03] MEDS ORDERED: MELA5TAB40 PO (20:11)
[2024-07-03] MEDS: LORazepam 2 MG TABLET PO ONE (20:33)
[2024-07-03] MEDS: MELATONIN 5 MG TABLET PO ONE (20:33)
== END 2024-07-03 20:44 | disposition home or self-care (01) ==
LOC: EMS 16:14
DX: T39.311A Poisoning by propionic acid derivatives, accidental (unintentional), initial encounter (principal); F41.9 Anxiety disorder, unspecified; E11.65 Type 2 diabetes mellitus with hyperglycemia; F25.0 Schizoaffective disorder, bipolar type; F60.3 Borderline personality disorder; F12.90 Cannabis use, unspecified, uncomplicated; I10 Essential (primary) hypertension; F17.210 Nicotine dependence, cigarettes, uncomplicated; Z79.899 Other long term (current) drug therapy; Z20.822 Contact with and (suspected) exposure to COVID-19; Y92.89 Other specified places as the place of occurrence of the external cause
CPT/HCPCS: 99284; 87426; 80048; 81001; 84703; 85025; 36415; 96372; 80307; G0480; J1815; G0481